=== PATIENT | female | born 1985 | race Caucasian/White ===

== ENCOUNTER 2023-05-06 11:41 | Emergency (ER) | payer OTHER, SELFPAY ==
[2023-05-06 11:51] VITALS: BP 115/64; PULSE 70; RESP 18; TEMP 36.8; O2SAT 100; BMI 16.0
--- NOTE | 2023-05-06 12:24 | ED.SKABFB1 ---
HPI - Skin/Abscess/Foreign Bdy General Chief complaint: Skin/Abscess/Foreign Body Stated complaint: ABDOMINAL PAIN Time Seen by Provider: 05/06/23 12:20 Source: patient Limitations: no limitations History of Present Illness HPI narrative: patient here the sore tender swollen area over her left abdomen. She denies any history of previous abscesses infections or MRSA. She is not diabetic. She's not had fever shakes or chills. She doesn't feel ill. She's tried to get it to drain and but has not. The area of involvement is over the left lateral abdomen and she has no other skin lesions at all Related Data Allergies Allergy/AdvReac Type Severity Reaction Status Date / Time No Known Drug Allergies Allergy Verified 05/06/23 11:50 PFSH PFSH Social History Smoking status: Current every day smoker Exam Narrative Exam Narrative: awake alert pleasant does not appear ill her vital signs are stable. Problem focused examination the rest the entire skin integument is without any abnormalities. However on examination left lower and mid abdomen there is a freely movable tender three and half by two and half centimeter palpable was felt to be an abscess with it coming to ahead with erythema and appointing area. She is not having itching to the area. There is no surrounding cellulitis or lymphangitis. Constitutional Vital Signs, click to edit/add: Last Vital Signs Temp 98.2 F 05/06/23 11:51 Pulse 70 05/06/23 11:51 Resp 18 05/06/23 11:51 BP 115/64 05/06/23 11:51 Pulse Ox 100 05/06/23 11:51 O2 Del Method Room Air 05/06/23 11:51 Course Vital Signs Vital signs: Vital Signs Temperature 98.2 F 05/06/23 11:51 Pulse Rate 70 05/06/23 11:51 Respiratory Rate 18 05/06/23 11:51 Blood Pressure 115/64 05/06/23 11:51 Pulse Oximetry 100 05/06/23 11:51 Oxygen Delivery Method Room Air 05/06/23 11:51 Temperature 98.2 F 05/06/23 11:51 Pulse Rate 70 05/06/23 11:51 Respiratory Rate 18 05/06/23 11:51 Blood Pressure 115/64 05/06/23 11:51 Pulse Oximetry 100 05/06/23 11:51 Oxygen Delivery Method Room Air 05/06/23 11:51 MDM - Skin/Abscess/Foreign Bdy MDM Narrative Medical decision making narrative: procedure note after lidocaine with epinephrine wound was prepped with Betadine and then a #11 blade was used to make a stellate laceration approximately 1 cm in diameter. A good amount. Temperature was recovered and then hemostats were used to break up subcutaneous cystic type debris deeper inside. This was felt to be more of an infected cystic structure that was an abscess. She tolerated the procedure well. Packing is replaced. I did not culture the area. We will lyse warm compresses. She can remove the packing in twenty-four hours she'll be placed on Keflex and doxycycline. Discharge Plan Discharge Chief Complaint: Skin/Abscess/Foreign Body Clinical Impression: Infected cyst of skin Patient Disposition: Home, Self-Care Time of Disposition Decision: 12:51 Additional Instructions: Keflex/doxycycline Stand Alone Forms: Portal Instructions Referrals: Physician,Non-Staff, MD [Primary Care Provider] - 1 week
[2023-05-06] MEDS: LIDOCAINE HCL 1%-EPINEPHRINE 1:100,000 20 ML MDV INJ (12:39)
== END 2023-05-06 13:06 | disposition home or self-care (01) ==
PROVIDERS: Emergency Provider Emergency Medicine Emergency Medical Services
DX: L72.9 Follicular cyst of the skin and subcutaneous tissue, unspecified (principal); F17.210 Nicotine dependence, cigarettes, uncomplicated
CPT/HCPCS: 10060; 99283

== ENCOUNTER 2023-05-15 11:35 | Emergency (ER) | payer OTHER, SELFPAY ==
[2023-05-15 11:42] VITALS: BP 106/71; PULSE 86; RESP 16; TEMP 36.6; O2SAT 98; BMI 21.0
--- OUTSIDE RECORDS SUMMARY | 2023-05-15 11:42 | XMS_ITS | CCD ---
Author Name Unknown Address [address] [place] [address] Organization [facility] Care Team Providers Care Substitute Crossing Guard Name Role Phone MD Francisco J Walker Admit Provider [phone] MD Francisco J Walker Attending Provider [phone] NO FAMILY, PHYSICIAN Primary Care Provider Chayova AUSTIN Alexandre Attending Unavailable AUSTIN BROWN Consulting Unavailable AUSTIN BROWN Admitting Unavailable REQUEST, NONE LISTED Primary Care Unavaila ANEUDY Key Attending Unavailable ANEUDY HO Consulting Unavailable ANEUDY HO Admitting Unavailable JR CRAFT Attending Unavailable JR CRAFT Admitting Unavailable REQUEST, NONE LISTED Primary Care Unavaila ble Medications Current Medications Medication Drug Class(es) Dates Sig (Normalized) Sig (Original) ARIPiprazole 5 mg oral tablet (1 source) Atypical Antipsychotic Start: 12-15-2021 take 5 mg by mouth once daily at bedtime Aripiprazole Active 5 MG PO Daily at bedtime 30 December 15, 2021 12:00am hydrOXYzine pamoate 50 mg oral capsule (1 source) Antihistamine Start: 12-15-2021 take 50 mg by mouth every six hours Hydroxyzine Pamoate Active 50 MG PO Q6H 30 December 15, 2021 12:00am nicotine 2 mg chewing gum (1 source) Cholinergic Nicotinic Agonist Start: 12-15-2021 Nicotine (Polacrilex) Active 2 MG BUCCAL Q2H 60 December 15, 2021 12:00am sertraline 50 mg oral tablet (1 source) Serotonin Reuptake Inhibitor Start: 12-15-2021 take 50 mg by mouth once daily in the morning Sertraline Active 50 MG PO Every morning 30 December 15, 2021 12:00am traZODone hydrochloride 50 mg oral tablet (1 source) Serotonin Reuptake Inhibitor Start: 12-15-2021 take 50 mg by mouth once daily at bedtime Trazodone Active 50 MG PO Daily at bedtime December 15, 2021 12:00am Problems Active Problems Problem Classification Problem Date Documented Date Episodic/Chronic Anxiety disorders (4 sources) Posttraumatic stress disorder; Translations: [Post-traumatic stress disorder, unspecified] 12-13-2021 Chronic Mood disorders (2 sources) Major depressive disorder; Translations: [Major depressive disorder, single episode, unspecified] 12-13-2021 Chronic Schizophrenia and other psychotic disorders (2 sources) Psychotic disorder; Translations: [Unspecified psychosis not due to a substance or known physiological condition] 12-13-2021 Chronic Substance-related disorders (1 source) Nicotine dependence, cigarettes, uncomplicated; Translations: [NICOTINE DEPEND CIGARETTES UNCOMP] Onset: 12-14-2021 Chronic Substance-related disorders (2 sources) Substance abuse; Translations: [Other psychoactive substance use, unspecified, uncomplicated] 12-13-2021 Episodic Unclassified (1 source) CONTACT W/AND (SUSP) EXPOS COVID-19; Translations: [CONTACT W/AND (SUSP) EXPOS COVID-19] Onset: 12-14-2021 Past or Other Problems Problem Classification Problem Date Documented Da te Episodic/Chronic Genitourinary symptoms and ill-defined conditions (3 sources) Frequency of micturition; Translations: [FREQUENCY OF MICTURITION] Onset: 07-24-2021 Episodic Other infections; including parasitic (1 source) Trichomoniasis, unspecified; Translations: [TRICHOMONIASIS UNSPECIFIED] Onset: 07-25-2021 Episodic Suicide and intentional self-inflicted injury (6 sources) Suicidal thoughts; Translations: [Suicidal ideations] Onset: 12-12-2021 12-13-2021 Episodic Results Test Name Value Interpretation Reference Range Facility Cholesterol [Mass/volume] in Serum or PlasmaOrdered By: Francisco J Walker on 12-13-2021 Cholesterol [Mass/Vol] 188 mg/dL 140-200 [facility] Comment on above: Chol less than 200 m g/dl low risk Chol 201-239 mg/dl borderline risk Chol 240 mg/dl and greater high risk Cholesterol in LDL Calc [Mas s/Vol]Ordered By: Francisco J Walker on 12-13-2021 Cholesterol in LDL [Mass/Vol] 124 mg/dL 0-100 [facility] Comment on above: LDL ATP III CLASSIFI CATION LDL less than 100 mg/dL Optimal LDL 100-129 mg/dL Near or above optimal LDL 130-159 mg/dL Borderline high LDL 160-189 mg/dL High LDL greater than 189 mg/dL Very high Cholesterol in VLDL Calc [Ma ss/Vol]Ordered By: Francisco J Walker on 12-13-2021 Cholesterol in VLDL [Mass/Vol] 9 mg/dL [facility] Lipid Panelon 12-13-2021 Cholesterol [Mass/Vol] 188 mg/dL Normal 140-200 [facility] Comment on above: Result Comment: Chol less than 200 mg/dl low risk Chol 201-239 mg/dl borderline risk Chol 240 mg/dl and greater high risk Performed By: #### L IPID, TSH3 wRFLX, [id number] #### [facility] [address] [id number] [facility] Cholesterol in HDL [Mass/Vol] 55 mg/dL Normal 35-85 [facility] Comment on above: Result Comment: HDL CHOL ATP-III CLASSIFICATION Cardiovascular Risk HDL > or equal to 60 mg/dL LOW HDL < 40 mg/dL HIGH Performed By: #### L IPID, TSH3 wRFLX, [id number] #### [facility] [address] [id number] [place] Cholesterol.total/Tri sterol in HDL [Mass ratio] 3.4 {ratio} Normal <5.0 [facility] Comment on above: Performed By: #### L IPID, TSH3 wRFLX, [id number] #### [facility] [address] [place] [address] [place] LDL Cholesterol,Calculated 124 mg/dL High 0-100 [facility] Comment on above: Result Comment: LDL ATP III CLASSIFICATION LDL less than 100 mg/dL Optimal LDL 100-129 mg/dL Near or above optimal LDL 130-159 mg/dL Borderline high LDL 160-189 mg/dL High LDL greater than 189 mg/dL Very high Performed By: #### L IPID, TSH3 wRFLX, [id number] #### [facility] [address] [place] [address] [place] Triglyceride w/Reflex 45 mg/dL Normal 35-149 [facility] Comment on above: Result Comment: TRIG ATP III CLASSIFICATION TRIG less than 150 mg/dL Normal TRIG 150-199 mg/dL Borderline high TRIG 200-500 mg/dL High TRIG greater than 500 mg/dL Very high Standard traceable to the Center for Disease Conrtrol and Prevention (CDC) test method. Performed By: #### L IPID, TSH3 wRFLX, [id number] #### [facility] [address] VLDL CHOLESTEROL 9 mg/dL Normal [facility] Comment on above: Performed By: #### L IPID, TSH3 wRFLX, [id number] #### [facility] [address] No Panel InformationOrdered By: Francisco J Walker on 12-13-2021 25-Hydroxy Vitamin D Total 36.1 ng/mL 30-100 [facility] Comment on above: VITAMIN D STATUS 25( [place])VITAMIN D RANGE (ng/mL) Deficient <20 Insufficient 20 to <30 Sufficient 30 to 100 Reference: Sai MF,Catie NC, Mic TIJERINA, et al. Evaluation,treatment, and prevention of vitamin D deficiency; an Endocrine Society clinical practice guideline. JCEM. 2010; 96(7):1911-30. Serum or plasma high density lipoprotein (HDL) cholesterol measurementOrdered By: Francisco J Walker on 12-13-2021 Cholesterol in HDL [Mass/Vol] 55 mg/dL 35-85 [facility] Comment on above: HDL CHOL ATP-III CLA SSIFICATION Cardiovascular Risk HDL > or equal to 60 mg/dL LOW HDL < 40 mg/dL HIGH Serum or plasma total choles terol/high density lipoprotein (HDL) cholesterol mass ratOrdered By: Francisco J Walker on 12-13-2021 Cholesterol.total/Tri sterol in HDL [Mass ratio] 3.4 {ratio} <5.0 [facility] TSH DL <= 0.005 mIU/L QnOrde red By: Francisco J Walker on 12-13-2021 TSH Qn 0.73 m[IU]/L 0.45-5.33 [facility] Thyroid Stim Hormone w/Rflxo n 12-13-2021 Thyroid Stim Hormone w/Rflx 0.73 u[iU]/mL Normal 0.45-5.33 [facility] Comment on above: Performed By: #### L IPID, TSH3 wRFLX, [id number] #### [facility] [address] [id number] [facility] Triglyceride [Mass/volume] i n Serum or PlasmaOrdered By: Francisco J Walker on 12-13-2021 Triglyceride [Mass/Vol] 45 mg/dL 35-149 [facility] Comment on above: TRIG ATP III CLASSIF ICATION TRIG less than 150 mg/dL Normal TRIG 150-199 mg/dL Borderline high TRIG 200-500 mg/dL High TRIG greater than 500 mg/dL Very high Standard traceable to the Center for Disease Conrtrol and Prevention (CDC) test method. Vitamin D 25 Hydroxy Totalon 12-13-2021 Vitamin D 25 Hydroxy Total 36.1 ng/mL Normal 30-100 [facility] Comment on above: Result Comment: EVER MIN D STATUS 25([place])VITAMIN D RANGE (ng/mL) Deficient <20 Insufficient 20 to <30 Sufficient 30 to 100 Reference: Sai MF,Catie NC, Mic TIJERINA, et al. Evaluation,treatment, and prevention of vitamin D deficiency; an Endocrine Society clinical practice guideline. JCEM. 2010; 96(7):1911-30. PERFORMED BY: [facility] [address] [place] [address] PATHOLOGIST COMMERCIAL ATTORNEY AYANA CARDOZA M.D. Performed By: #### L IPID, TSH3 wRFLX, [id number] #### [facility] [address] [place] [address] [facility] ACETAMINOPHENon 12-12-2021 Acetaminophen [Mass/Vol] ug/mL Normal 10.0-30.0 [facility] Comment on above: Performed By: #### E RUR, DRUGRPD, PREGU #### [facility] [address] [address] [address] Arias Delatorre CBC AUTO DIFFon 08-09-2022 BASO # 0.0 103/ul Normal 0.0-0.1 [facility] Comment on above: Performed By: #### C BC #### [facility] [address] [place] [address] Dr. Arias Delatorre Basophils/100 WBC (Bld) 0.2 % Normal 0.2-2.0 [facility] Comment on above: Performed By: #### C BC #### [facility] [address] [place] [address] Dr. Arias Delatorre EO # 0.0 103/ul Normal 0.0-0.7 [facility] Comment on above: Performed By: #### C BC #### [facility] [address] [place] [address] Dr. Arias Delatorre Eosinophils/100 WBC (Bld) 0.2 % Critically low 0.9-7.0 [facility] Comment on above: Performed By: #### C BC #### [facility] [address] [place] [address] Dr. Arias Delatorre Erythrocyte distribution width (RBC) [Ratio] 12.7 % Normal 11.0-15.0 [facility] Comment on above: Performed By: #### C BC #### [facility] [address] [place] [address] Dr. Arias Delatorre Hematocrit (Bld) [Volume fraction] 42.9 % Normal 36.0-48.0 [facility] Comment on above: Performed By: #### C BC #### [facility] [address] [place] [address] Dr. Arias Delatorre Hemoglobin (Bld) [Mass/Vol] 14.6 g/dL Normal 12.0-16.0 [facility] Comment on above: Performed By: #### C BC #### [facility] [address] [place] [address] Dr. Arias Delatorre IG # 0.03 10e3/ul Normal 0.00-0.03 [facility] Comment on above: Performed By: #### C BC #### [facility] [address] [place] [address] Dr. Arias Delatorre IG % 0.3 % Normal 0.0-0.5 [facility] Comment on above: Performed By: #### C BC #### [facility] [address] [place] [address] Dr. Arias Delatorre LYMPH # 2.8 103/ul Normal 1.2-3.8 [facility] Comment on above: Performed By: #### C BC #### [facility] [address] [place] [address] Dr. Arias Delatorre Lymphocytes/100 WBC (Bld) 30.6 % Normal 20.5-60.0 [facility] Comment on above: Performed By: #### C BC #### [facility] [address] [place] [address] Dr. Arias Delatorre MANUAL DIFF REQ NO Normal [facility] Comment on above: Performed By: #### C BC #### [facility] [address] [place] [address] Dr. Arias Delatorre MCH (RBC) [Entitic mass] 32.7 pg Normal 26.7-34.0 [facility] Comment on above: Performed By: #### C BC #### [facility] [address] [place] [address] Dr. Arias Delatorre MCHC (RBC) [Mass/Vol] 34.0 g/dL Normal 29.9-35.2 [facility] Comment on above: Performed By: #### C BC #### [facility] [address] [place] [address] Dr. Arias Delatorre MCV (RBC) [Entitic vol] 96.0 fL Normal 81.0-99.0 [facility] Comment on above: Performed By: #### C BC #### [facility] [address] [place] [address] Dr. Arias Delatorre MONO # 0.3 103/ul Normal 0.3-0.8 [facility] Comment on above: Performed By: #### C BC #### [facility] [address] [place] [address] Dr. Arias Delatorre Monocytes/100 WBC (Bld) 3.3 % Normal 1.7-12.0 [facility] Comment on above: Performed By: #### C BC #### [facility] [address] [place] [address] Dr. Arias Delatorre NEUT # 6.0 103/ul Normal 1.4-6.5 [facility] Comment on above: Performed By: #### C BC #### [facility] [address] [place] [address] Dr. Arias Delatorre Neutrophils/100 WBC (Bld) 65.4 % Normal 43.0-75.0 [facility] Comment on above: Performed By: #### C BC #### [facility] [address] [place] [address] Dr. Arias Delatorre Platelet mean volume (Bld) [Entitic vol] 8.9 fL Critically low 9.5-13.5 [facility] Comment on above: Performed By: #### C BC #### [facility] [address] [place] [address] Dr. Arias Delatorre PLT 201 103/ul Normal 150-450 [facility] Comment on above: Performed By: #### C BC #### [facility] [address] [place] [address] Dr. Arias Delatorre RBC 4.47 106/ul Normal 4.20-5.40 [facility] Comment on above: Performed By: #### C BC #### [facility] [address] [place] [address] Dr. Arias Delatorre WBC 9.1 103/ul Normal 4.0-11.0 [facility] Comment on above: Performed By: #### C BC #### [facility] [address] [place] [address] Dr. Arias Delatorre [facility]on SARS-CoV-2 (COVID-19) RNA DESI+probe Ql (Unsp spec) Not detected Normal NOT DETECTED [facility] Comment on above: Result Comment: When diagnostic testing is negative, the possibility of a false negative should be considered in the context of a patient's recent exposures and the presence of clinical signs and symptoms consistent with SARS-CoV-2. This test is not yet approved or cleared by the [place] FDA. When there are no FDA-approved or cleared tests available, and other criteria are met, FDA can make tests available under an emergency access mechanism called an Emergency Use Authorization (EUA). The EUA for this test is supported by the [place] of Health and Human Service's declaration that circumstances exist to justify the emergency use of in vitro diagnostics for the detection and/or diagnosis of the virus that causes COVID-19. This EUA will remain in effect for the duration of the COVID-19 declaration justifying emergency of IVDs, unless it is terminated or revoked by the FDA (after which the test may no longer be used). Performed By: #### C VDTBH #### [facility] [address] [place] [address] Dr. Arias Delatorre DRUG SCREEN RAPID (URINE)on 12-12-2021 AMP Negative Normal NEGATIVE [facility] Comment on above: Performed By: #### E RUR, DRUGRPD, PREGU #### [facility] [address] [place] [address] Dr. Arias Delatorre BAR Negative Normal NEGATIVE [facility] Comment on above: Performed By: #### E RUR, DRUGRPD, PREGU #### [facility] [address] [place] [address] Dr. Arias Delatorre BUP Negative Normal NEGATIVE [facility] Comment on above: Performed By: #### E RUR, DRUGRPD, PREGU #### [facility] [address] [place] [address] Dr. Arias Delatorre BZO Negative Normal NEGATIVE [facility] Comment on above: Performed By: #### E RUR, DRUGRPD, PREGU #### [facility] [address] [place] [address] Dr. Arias Delatorre VERÓNICA Negative Normal NEGATIVE [facility] Comment on above: Performed By: #### E RUR, DRUGRPD, PREGU #### [facility] [address] [place] [address] Dr. Arias Delatorre CUT-OFFS SEE BELOW Normal [facility] Comment on above: Result Comment: AMP (Amphetamine): 500ng/mL, BAR (Barbituates): 200 ng/mL, BZO (Benzodiazepines): 150 ng/mL, BUP (Buprenorphine): 10 ng/mL, VERÓNICA (Cocaine): 150 ng/mL, mAMP (Methamphetamine): 500 ng/mL, MTD (Methadone): 200 ng/mL, OPI (Opiates): 100 ng/mL, OXY (Oxycodone): 100 ng/mL, PCP (Phencyclidine): 25 ng/mL, PPX (Propoxyphene): 300 ng/mL, THC (Cannabinoids): 50 ng/mL, TCA (Trycyclic Antidepressants): 300 ng/mL Performed By: #### E RUR, DRUGRPD, PREGU #### [facility] [address] [place] [address] Dr. Arias Delatorre DRUG CUT HEADER DRUG CLASS TEST SYSTEM CUT-OFF CONCENTRATIONS ARE FOLLOWS: Normal [facility] Comment on above: Performed By: #### E RUR, DRUGRPD, PREGU #### [facility] [address] [place] [address] Dr. Arias Delatorre mAMP Negative Normal NEGATIVE [facility] Comment on above: Performed By: #### E RUR, DRUGRPD, PREGU #### [facility] [address] [place] [address] Dr. Arias Delatorre MTD Negative Normal NEGATIVE [facility] Comment on above: Performed By: #### E RUR, DRUGRPD, PREGU #### [facility] [address] [place] [address] Dr. Arias Delatorre OPI Negative Normal NEGATIVE [facility] Comment on above: Performed By: #### E RUR, DRUGRPD, PREGU #### [facility] [address] [place] [address] Dr. Arias Delatorre OXY Negative Normal NEGATIVE [facility] Comment on above: Performed By: #### E RUR, DRUGRPD, PREGU #### [facility] [address] [place] [address] Dr. Arias Delatorre PCP Negative Normal NEGATIVE [facility] Comment on above: Performed By: #### E RUR, DRUGRPD, PREGU #### [facility] [address] [place] [address] Dr. Arias Delatorre PPX Negative Normal NEGATIVE [facility] Comment on above: Performed By: #### E RUR, DRUGRPD, PREGU #### [facility] [address] [place] [address] Dr. Arias Delatorre TCA Negative Normal NEGATIVE [facility] Comment on above: Performed By: #### E RUR, DRUGRPD, PREGU #### [facility] [address] [place] [address] Dr. Arias Delatorre THC Positive Abnormal NEGATIVE [facility] Comment on above: Performed By: #### E RUR, DRUGRPD, PREGU #### [facility] [address] [place] [address] Dr. Arias Delatorre ER URINE PROFILEon 2 Bilirubin Ql (U) MODERATE Abnormal NEGATIVE [facility] Comment on above: Performed By: #### E RUR, DRUGRPD, PREGU #### [facility] [address] [place] [address] Dr. Arias Delatorre Clarity (U) SL CLOUDY Abnormal CLEAR [facility] Comment on above: Performed By: #### E RUR, DRUGRPD, PREGU #### [facility] [address] [place] [address] Dr. Arias Delatorre Color (U) YELLOW Normal YELLOW [facility] Comment on above: Performed By: #### E RUR, DRUGRPD, PREGU #### [facility] [address] [place] [address] Dr. Arias Delatorre ERUAHD A micrscopic examination will be performed if indicated. Normal [facility] Comment on above: Performed By: #### E RUR, DRUGRPD, PREGU #### [facility] [address] [place] [address] Dr. Arias Delatorre Glucose Ql (U) Negative Normal NEGATIVE [facility] Comment on above: Performed By: #### E RUR, DRUGRPD, PREGU #### [facility] [address] [place] [address] Dr. Arias Delatorre Hemoglobin Ql (U) Negative Normal NEGATIVE [facility] Comment on above: Performed By: #### E RUR, DRUGRPD, PREGU #### [facility] [address] [place] [address] Dr. Arias Delatorre Ketones Ql (U) 15 mg/dl Abnormal NEGATIVE [facility] Comment on above: Performed By: #### E RUR, DRUGRPD, PREGU #### [facility] [address] [place] [address] Dr. Arias Delatorre LEUKOCYTES Negative Normal NEGATIVE [facility] Comment on above: Performed By: #### E RUR, DRUGRPD, PREGU #### [facility] [address] [place] [address] Dr. Arias Delatorre Nitrite Ql (U) Negative Normal NEGATIVE [facility] Comment on above: Performed By: #### E RUR, DRUGRPD, PREGU #### [facility] [address] [place] [address] Dr. Arias Delatorre pH (U) 5.5 [pH] Normal 5-9 [facility] Comment on above: Performed By: #### E RUR, DRUGRPD, PREGU #### [facility] [address] [place] [address] Dr. Arias Delatorre SPEC GRAVITY 1.030 Abnormal 1.005-<=1.025 [facility] Comment on above: Performed By: #### E RUR, DRUGRPD, PREGU #### [facility] [address] [place] [address] Dr. Arias Delatorre UA PROTEIN TRACE Normal NEGATIVE/ TRACE [facility] Comment on above: Performed By: #### E RUR, DRUGRPD, PREGU #### [facility] [address] [place] [address] Dr. Arias Delatorre UR MICRO IND NOT INDICATED Normal [facility] Comment on above: Performed By: #### E RUR, DRUGRPD, PREGU #### [facility] [address] [place] [address] Dr. Arias Delatorre Urobilinogen Qn (U) 0.2 {Alexandra'U}/dL Normal 0.2 - 1. 0 [facility] Comment on above: Performed By: #### E RUR, DRUGRPD, PREGU #### [facility] [address] [place] [address] Dr. Arias Delatorre ETHANOL (BLD ALC)on 12-13-19 22 ALC NOTE NOTE: 80 mg/dl is the legal limit for a blood alcohol level Normal [facility] Comment on above: Performed By: #### E RUR, DRUGRPD, PREGU #### [facility] [address] [place] [address] Dr. Arias Delatorre Ethanol [Mass/Vol] mg/dL Normal [facility] Comment on above: Performed By: #### E RUR, DRUGRPD, PREGU #### [facility] [address] [place] [address] Dr. Arias Delatorre URon 12-12-2021 , QUAL Negative Normal NEGATIVE [facility] Comment on above: Performed By: #### E RUR, DRUGRPD, PREGU #### [facility] [address] [place] [address] Dr. Arias Delatorre PROF 14(COMP METB)on 022 Albumin [Mass/Vol] 5.0 g/dL Normal 3.4-5.0 [facility] Comment on above: Performed By: #### E RUR DRUGRPD, PREGU #### [facility] [address] [place] [address] Dr. Arias Delatorre Albumin/Globulin [Mass ratio] 1.5 {ratio} Normal [facility] Comment on above: Performed By: #### E RUR, DRUGRPD, PREGU #### [facility] [address] [place] [address] Dr. Arias Delatorre ALP [Catalytic activity/Vol] 63 U/L Normal 46-116 [facility] Comment on above: Performed By: #### E RUR, DRUGRPD, PREGU #### [facility] [address] [place] [address] Dr. Arias Delatorre ALT [Catalytic activity/Vol] 16 U/L Normal 14-59 [facility] Comment on above: Performed By: #### E RUR, DRUGRPD, PREGU #### [facility] [address] [place] [address] Dr. Arias Delatorre Anion gap [Moles/Vol] 14.6 mmol/L Normal Th [facility] Comment on above: Performed By: #### E RUR, DRUGRPD, PREGU #### [facility] [address] [place] [address] Dr. Arias Delatorre AST [Catalytic activity/Vol] 13 U/L Critically low 15-37 [facility] Comment on above: Performed By: #### E RUR, DRUGRPD, PREGU #### [facility] [address] [place] [address] Dr. Arias Delatorre Bilirubin [Mass/Vol] 0.8 mg/dL Normal 0.2-1.0 [facility] Comment on above: Performed By: #### E RUR, DRUGRPD, PREGU #### [facility] [address] [place] [address] Dr. Arias Delatorre Calcium [Mass/Vol] 9.8 mg/dL Normal 8.5-10.1 [facility] Comment on above: Performed By: #### E RUR, DRUGRPD, PREGU #### [facility] [address] [place] [address] Dr. Arias Delatorre Chloride [Moles/Vol] 103 mmol/L Normal 98-107 [facility] Comment on above: Performed By: #### E RUR, DRUGRPD, PREGU #### [facility] [address] [place] [address] Dr. Arias Delatorre CO2 [Moles/Vol] 27.9 mmol/L Normal 21.0-32.0 [facility] Comment on above: Performed By: #### E RUR, DRUGRPD, PREGU #### [facility] [address] [place] [address] Dr. Arias Delatorre Creatinine [Mass/Vol] 1.04 mg/dL Critically high 0.55-1.02 [facility] Comment on above: Performed By: #### E RUR, DRUGRPD, PREGU #### [facility] [address] [place] [address] Dr. Arias Delatorre EGFR-AF BENINESE >60 Normal >=60 [facility] Comment on above: Performed By: #### E RUR, DRUGRPD, PREGU #### [facility] [address] [place] [address] Dr. Arias Delatorre EGFR-NON AF BENINESE 60 mL/min/1.73m2 Normal >=60 [facility] Comment on above: Performed By: #### E RUR, DRUGRPD, PREGU #### [facility] [address] [place] [address] Dr. Arias Delatorre Globulin (S) [Mass/Vol] 3.3 g/dL Normal [facility] Comment on above: Performed By: #### E RUR, DRUGRPD, PREGU #### [facility] [address] [place] [address] Dr. Arias Delatorre Glucose [Mass/Vol] 123 mg/dL Critically high 74-106 [facility] Comment on above: Performed By: #### E RUR, DRUGRPD, PREGU #### [facility] [address] [place] [address] Dr. Arias Delatorre Potassium [Moles/Vol] 3.5 mmol/L Normal 3.5-5.1 [facility] Comment on above: Performed By: #### E RUR, DRUGRPD, PREGU #### [facility] [address] [place] [address] Dr. Arias Delatorre Protein [Mass/Vol] 8.3 g/dL Critically high 6.4-8.2 [facility] Comment on above: Performed By: #### E RUR, DRUGRPD, PREGU #### [facility] [address] [place] [address] Dr. Arias Delatorre Sodium [Moles/Vol] 142 mmol/L Normal 136-145 [facility] Comment on above: Performed By: #### E RUR, DRUGRPD, PREGU #### [facility] [address] [place] [address] Dr. Arias Delatorre Urea nitrogen [Mass/Vol] 9.0 mg/dL Normal 7.0-18.0 [facility] Comment on above: Performed By: #### E RUR, DRUGRPD, PREGU #### [facility] [address] [place] [address] Dr. Arias Delatorre Urea nitrogen/Creatinine [Mass ratio] 8.7 mg/mg Normal [facility] Comment on above: Performed By: #### E RUR, DRUGRPD, PREGU #### [facility] [address] [place] [address] Dr. Arias Delatorre SALICYLATEon 12-12-2021 SALICYLATE 4.7 mg/dL Normal <=19.9 [facility] Comment on above: Performed By: #### A CET, CMP, SALYC #### [facility] [address] [place] [address] Dr. Arias Delatorre CULTURE URINEon 07-24-2021 CULTURE URINE Culture Observations: LIGHT GROWTH OF MIXED GENITAL CONOR. NO POTENTIAL PATHOGENS SEEN. Normal The [facility] Comment on above: Performed By: #### U RCX #### [facility] [address] [place] [address] Dr. Arias Delatorre ER URINE PROFILEon 2 Bilirubin Ql (U) Negative Normal NEGATIVE [facility] Comment on above: Performed By: #### U MICRO, ERUR, PREGU #### [facility] [address] [place] [address] Dr. Arias Delatorre Clarity (U) CLEAR Normal CLEAR The [facility] Comment on above: Performed By: #### U MICRO, ERUR, PREGU #### [facility] [address] [place] [address] Dr. Arias Delatorre Color (U) LT. YELLOW Normal YELLOW The [facility] Comment on above: Performed By: #### U MICRO, ERUR, PREGU #### [facility] [address] [place] [address] Dr. Arias Delatorre ERUAHD A micrscopic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 of self (15-minute face check). Recommend attending groups and psychoeducation for building coping skills. No abnormal movements noted on exam. AIMS is Zero. Code(s): F32.9 - Major depressive disorder, single episode, unspecified Status: Acute (2) Anxiety: Code(s): F41.9 - Anxiety disorder, unspecified Status: Acute (3) Post traumatic stress disorder (PTSD): Code(s): F43.10 - Post-traumatic stress disorder, unspecified Status: Acute (4) Substance use disorder: Code(s): F19.90 - Other psychoactive substance use, unspecified, uncomplicated Status: Acute (5) Psychosis: Code(s): F29 - Unspecified psychosis not due to a substance or known physiological condition Status: Acute (6) Suicidal ideation: Code(s): R45.851 - Suicidal ideations Status: Acute Documented By: Francisco J Walker MD 12/13/21 0950 Signed By: <Electronically signed by Francisco J Walker MD> 12/13/21 4640 [facility] Work Phone: Evaluation note Note Date & Type Note Facility Evaluation note Diagnosis Onset Date Anxiety acute Major depressive disorder [place] Post traumatic stress disorder (PTSD) acute Psychosis acute Substance use disorder acute Suicidal ideation acute [facility] Work Phone: Hospital Discharge instructions Note Date & Type Note Facility Hospital Discharge instructions Additional Instructions Regular diet. No activity restrictions. [facility] Work Phone: Summary Purpose Family History No Family History Records Found Relationship Condition Age at Onset Recorded Date/T rowena brother Malignant neoplasm Unknown Not Specified Malignant neoplasm Unknown father Hepatic cirrhosis Unknown Alcoholism Unknown grandparent Family history of mental disorder Unknown Advance Directives No Advanced Directives Records Found Advance Directive Response Recorded Date/ Time Advance Directives No December 12, 2 022 5:52pm Chief Complaint and Reason for Visit Chief Complaint MDD Reason for Visit Anxiety Major depressive disorder Post traumatic stress disorder (PTSD) Psychosis Substance use disorder Suicidal ideation Additional Source Comments INFORMATION SOURCE (unrecogn ized section and content) DATE CREATED AUTHOR 12/27/2021 [facility] DATE CREATED AUTHOR AUTHOR'S ORGANIZ ATION 06/20/2022 [facility] Teams (unrecognized sec tion and content) Team Status: Inactive Member Role Status Dates Francisco J Walker MD Admit Provider, Attending Provider Active PHYSICIAN NO FAMILY Primary Care Provider Active Team Status: Active Member Role Status Dates PHYSICIAN NO FAMILY Primary Care Provider Active Goals (unrecognized section and content) Goals may be documented in a n alternate section FOR RECORDS PERTAINING TO PATIENTS WHO ARE OR HAVE BEEN ENROLLED IN A CHEMICAL DEPENDENCY/SUBSTANCEABUSE PROGRAM, SOME INFORMATION MAY BE OMITTED. This clinical summary was aggregated from multiple sources. Caution should be exercised in using it in the provision of clinical care. This summary normalizes information from multiple sources, and as a consequence, information in this document may materially change the coding, format and clinical context of patient data. In addition, data may be omitted in some cases. CLINICAL DECISIONS SHOULD BE BASED ON THE PRIMARY CLINICAL RECORDS. [employer] provides no warranty or guarantee of the accuracy or completeness of information in this document.
--- NOTE | 2023-05-15 13:11 | ED.SKABFB1 ---
HPI - Skin/Abscess/Foreign Bdy General Chief complaint: Skin/Abscess/Foreign Body Stated complaint: LUMPS/ BUMPS Time Seen by Provider: 05/15/23 12:57 Source: patient Mode of arrival: walk-in Limitations: no limitations History of Present Illness HPI narrative: this patient's here for very small tender area in her right lower abdomen. She was here several weeks ago and we had a more extensive abscess. We did an I and D procedure on there and placed her on antibiotics. That area is completely improved and gotten better with no symptoms or complications. Today this area is more medial and distal is approximately 15 cm away from where her earlier abscess was. She's never been checked for diabetes. One thing we did discloses that she uses straight razor for personal hygiene and that may be contributing to recurrence of MRSA type looking infections. In either case we will check her sugar. On please see the examination Related Data Allergies Allergy/AdvReac Type Severity Reaction Status Date / Time No Known Drug Allergies Allergy Verified 05/15/23 11:42 PFSH PFSH Social History Smoking status: Current every day smoker Exam Narrative Exam Narrative: well-hydrated well-nourished afebrile looks very healthy. The previous I and D area above the current problematic area is completely healed with no residual masses tenderness redness or tenderness. This is a very small area approximately less than 1 cm in diameter is not fluctuant or tender it is not pointing. There is no subcutaneous cysts noted. This should be managed with warm compresses and antibiotic therapy. Constitutional Vital Signs, click to edit/add: Last Vital Signs Temp 97.8 F 05/15/23 11:42 Pulse 86 05/15/23 11:42 Resp 16 05/15/23 11:42 BP 106/71 05/15/23 11:42 Pulse Ox 98 05/15/23 11:42 O2 Del Method Room Air 05/15/23 11:42 Course Vital Signs Vital signs: Vital Signs Temperature 97.8 F 05/15/23 11:42 Pulse Rate 86 05/15/23 11:42 Respiratory Rate 16 05/15/23 11:42 Blood Pressure 106/71 05/15/23 11:42 Pulse Oximetry 98 05/15/23 11:42 Oxygen Delivery Method Room Air 05/15/23 11:42 Temperature 97.8 F 05/15/23 11:42 Pulse Rate 86 05/15/23 11:42 Respiratory Rate 16 05/15/23 11:42 Blood Pressure 106/71 05/15/23 11:42 Pulse Oximetry 98 05/15/23 11:42 Oxygen Delivery Method Room Air 05/15/23 11:42 MDM - Skin/Abscess/Foreign Bdy MDM Narrative Medical decision making narrative: early infection of the skin distant from her previous infection. Should respond to conservative measures, does not need I and D today. Discharge Plan Discharge Chief Complaint: Skin/Abscess/Foreign Body Clinical Impression: Abscess of skin or subcutaneous tissue Patient Disposition: Home, Self-Care Time of Disposition Decision: 13:14 Additional Instructions: warm compresses/doxycycline Stand Alone Forms: Portal Instructions Referrals: Physician,Non-Staff, MD [Primary Care Provider] - 1 week
[2023-05-15 13:27] LABS: Glucometer 93 mg/dL (74-106)
== END 2023-05-15 13:36 | disposition home or self-care (01) ==
PROVIDERS: Emergency Provider Emergency Medicine Emergency Medical Services
DX: L02.211 Cutaneous abscess of abdominal wall (principal); F17.210 Nicotine dependence, cigarettes, uncomplicated
CPT/HCPCS: 36415; 99283

== ENCOUNTER 2024-02-23 10:12 | Emergency (ER) | payer OTHER, SELFPAY ==
[2024-02-23 10:16] VITALS: BP 122/65; PULSE 83; TEMP 37.4; O2SAT 97; BMI 60.5
--- OUTSIDE RECORDS SUMMARY | 2024-02-23 10:25 | XMS_ITS | CCD ---
Author Organization [facility] Care Team Providers Care [employer] Sorter Name Role Phone MD Francisco J Walker Admit Provider MD Francisco J Walker Attending Provider [phone] NO FAMILY, PHYSICIAN Primary Care Provider Unava ilable AUSTIN BROWN Attending Unavailable AUSTIN BROWN Consulting Unavailable AUSTIN BROWN Admitting Unavailable REQUEST, NONE LISTED Primary Care Unavaila ble ANEUDY HO Attending Unavailable ANEUDY HO Consulting Unavailable ANEUDY HO Admitting Unavailable SHAMJOSIANE, JR Attending Unavailable JR CRAFT Admitting Unavailable REQUEST, NONE LISTED Primary Care Unavaila ble NO FAMILY, PHYSICIAN Primary Care Provider Unava ilable DO Lucy Hardy Emergency Provider DO Haja Hauser Attending Provider Lucy Hardy Attending Unavailable NO FAMILY, PHYSICIAN Primary Care Unavailable Lucy Hardy Admitting Unavailable Haja Hauser Admitting Unavailable Haja Hauser Attending Unavailable NO FAMILY, PHYSICIAN Primary Care Unavailable Crystal Kauffman Attending Unavailable Crystal Kauffman Attending Unavailable Crystal Kauffman Attending Unavailable Crystal Kauffman Attending Unavailable ASHLEY WILBURN Attending Unavailable Medications Current Medications Medication Drug Class(es) Dates Sig (Normalized) Sig (Original) ARIPiprazole 5 mg oral tablet (3 sources) Atypical Antipsychotic Start: 12-15-2021 take 5 mg by mouth once daily at bedtime Aripiprazole Active 5 MG PO Daily at bedtime December 14, 2021 11:00pm hydrOXYzine pamoate 50 mg oral capsule (3 sources) Antihistamine Start: 12-15-2021 take 50 mg by mouth every six hours Hydroxyzine Pamoate Active 50 MG PO Q6H December 14, 2021 11:00pm nicotine 2 mg chewing gum (3 sources) Cholinergic Nicotinic Agonist Start: 12-15-2021 Nicotine (Polacrilex) Active 2 MG BUCCAL Q2H December 14, 2021 11:00pm ondansetron 4 mg disintegrating oral tablet (2 sources) Serotonin-3 Receptor Antagonist Start: 05-21-2023 take 4 mg by mouth every eight hours Ondansetron Active 4 MG PO Q8H May 21, 2023 12:00am sertraline 50 mg oral tablet (3 sources) Serotonin Reuptake Inhibitor Start: 12-15-2021 take 50 mg by mouth once daily in the morning Sertraline Active 50 MG PO Every morning December 14, 2021 11:00pm traZODone hydrochloride 50 mg oral tablet (3 sources) Serotonin Reuptake Inhibitor Start: 12-15-2021 take 50 mg by mouth once daily at bedtime Trazodone Active 50 MG PO Daily at bedtime December 14, 2021 11:00pm Problems Active Problems Problem Classification Problem Date Documented Date Episodic/Chronic Abdominal pain (1 source) Lower abdominal pain, unspecified; Translations: [Lower abdominal pain, unspecified] Onset: 05-21-2023 Episodic Anxiety disorders (8 sources) Posttraumatic stress disorder; Translations: [Post-traumatic stress disorder, unspecified] 12-13-2021 Chronic Mood disorders (4 sources) Major depressive disorder; Translations: [Major depressive disorder, single episode, unspecified] 12-13-2021 Chronic Nausea and vomiting (4 sources) Nausea and vomiting; Translations: [Nausea with vomiting, unspecified] Onset: 05-21-2023 05-21-2023 Episodic Schizophrenia and other psychotic disorders (4 sources) Psychotic disorder; Translations: [Unspecified psychosis not due to a substance or known physiological condition] 12-13-2021 Chronic Skin and subcutaneous tissue infections (1 source) Cutaneous abscess of abdominal wall; Translations: [Cutaneous abscess of abdominal wall] Onset: 05-21-2023 Episodic Substance-related disorders (1 source) Nicotine dependence, cigarettes, uncomplicated; Translations: [NICOTINE DEPEND CIGARETTES UNCOMP] Onset: 12-14-2021 Chronic Substance-related disorders (4 sources) Substance abuse; Translations: [Other psychoactive substance use, unspecified, uncomplicated] 12-13-2021 Episodic Suicide and intentional self-inflicted injury (8 sources) Suicidal thoughts; Translations: [Suicidal ideations] Onset: 12-12-2021 12-13-2021 Episodic Unclassified (1 source) CONTACT W/AND (SUSP) EXPOS COVID-19; Translations: [CONTACT W/AND (SUSP) EXPOS COVID-19] Onset: 12-14-2021 Past or Other Problems Problem Classification Problem Date Documented Da te Episodic/Chronic Genitourinary symptoms and ill-defined conditions (3 sources) Frequency of micturition; Translations: [FREQUENCY OF MICTURITION] Onset: 07-24-2021 Episodic Other infections; including parasitic (1 source) Trichomoniasis, unspecified; Translations: [TRICHOMONIASIS UNSPECIFIED] Onset: 07-25-2021 Episodic Results Test Name Value Interpretation Reference Range Facility Family Medicine Office/Clini c Noteon 12-25-2023 Family Medicine Office/Clinic Note Family Medicine Office/Clinic Note Chief Complaint Work Release HPI Staff Pt presents today to be evaluated for release to return to work. (Work excuse in chart states pt return to work 12/13/23) LENARD 12/11/23 w/Ashley (due to Crystal being off). Work Excuse given to pt due to folliculitis. Tx'd w/Bactrim therapy. Finished abx yesterday. States she now needs a note to return to work that states she is clear of infection. Pt states she was told by Ashley that she has MRSA. History of Present Illness pt presents today for follow up on abscess on abdomen. Review of Systems PHQ Score Initial Depression Screen Score: 0 SCORE Physical Exam Vitals & Measurements T: 36.6 ?C(Oral) HR: 71(Peripheral) RR: 16 BP: 118/72 SpO2: 96% HT: 63 in HT: 159 cm WT: 68.8 kg WT: 151.36 lb BMI: 27.21 General: alert, no acute distress ENMT: oral mucosa moist, no pharyngeal erythema or exudate Cardiovascular: regular rate and rhythm, normal peripheral perfusion Respiratory: Lungs CTA, respirations non labored Extremities: no deformity, no trauma Neurological: oriented x 4, LOC appropriate for age, CN II-XII intact, motor strength equal & normal bilaterally, speech normal small pea sized area where abscess has healed. no oozing noted. Assessment/Plan 1. Abscess of skin of abdomen (L02.211: Cutaneous abscess of abdominal wall) pt was seen by Ashley while this provider was on vacation. pt was prescribed antibiotics and the area is almost healed. pt is good to return back to work. all questions answered. RTC as needed 2. BMI 27.0-27.9,adult, (Z68.27: Body mass index [BMI] 27.0-27.9, adult)Body mass index [BMI] 27.0-27.9, adult BMI education 3. Current every day vaping (Z72.89: Other problems related to lifestyle) consider not vaping 4. Overweight with body mass index (BMI) of 27 to 27.9 in adult (E66.3: Overweight) see above Follow-up No qualifying data available Problem List/Past Medical History Ongoing Abscess of perineum Abscess of skin of abdomen Anxiety Auditory hallucination Bipolar disorder Current every day vaping Hidradenitis suppurativa Nausea and vomiting Overweight with body mass index (BMI) of 27 to 27.9 in adult PTSD (post-traumatic stress disorder) Historical No qualifying data Procedure/Surgical History delivery, delivery, delivery, Surgery. Medications aripiprazole 5 mg Tab clindamycin 300 mg oral cap, 300 mg= 1 cap(s), Oral, BID hydrOXYzine pamoate 50 mg Cap sertraline 50 mg Tab, 50 mg= 1 tab(s), Oral, Daily, 1 refills traZODONE 50 mg Tab triamcinolone Top 0.1% Crm 15 gram, 1 christine, Topical, TID Zofran 4 mg Tab, 4 mg= 1 tab(s), Oral, q8hr, PRN Allergies No Known Allergies Social History Tobacco - Medium Risk, 12/11/2023 Former smoker, quit more than 30 days ago, quit Beginning of 2023 Tobacco Use:. Never Smokeless Tobacco Use:. Vaping, Household tobacco concerns: No. Yes, 12/25/2023 Immunizations Vaccine Date Status SARS-CoV-2 (COVID-19) mRNA BNT-162b2 vax 10/18/2020 Recorded SARS-CoV-2 (COVID-19) mRNA BNT-162b2 vax 09/27/2020 Recorded [facility] Comment on above: Result Comment: Elec tronically Signed By: Daly ARCHIBALD, Crystal Kumar\.br\Date and Time Signed: 12/25/23 16:13 EDT Provider Letteron 12-25-2023 Provider Letter Provider Letter [address] [place] [id number] December 25, 2023 [address] [place] [id number] : 1985 To Whom It May Concern, Please allow the above named patient to return to work. She is not contagious. If you have any questions regarding this request please do not hesitate to call our office. Thank you. Sincerely, ZAIDA Peters [facility] Ambulatory Visit Summaryon 0 12-11-2023 Ambulatory Visit Summary Ambulatory Visit Summary DEISY PORTILLO :1985 Visit Date:12/11/2023 Ambulatory Visit Instructions Your Care Team Attending Physician - ASHLEY WILBURN CNP Primary Care Physician - Crystal Reese This Is Your Medications List aripiprazole (aripiprazole 5 mg Tab) clindamycin (clindamycin 300 mg oral cap) hydrOXYzine (hydrOXYzine pamoate 50 mg Cap) ondansetron (ondansetron 4 mg Dis Tab) sertraline (sertraline 50 mg Tab) trazodone (traZODONE 50 mg Tab) triamcinolone topical (triamcinolone Top 0.1% Crm 15 gram) Procedures Performed delivery, delivery, delivery, Surgery. Discharge Vitals Temperature (Temporal Artery) 36.7 ?C Heart Rate (Peripheral) 80 Respiratory Rate 18 Blood Pressure 118/82 Height 162.5 cm Height 64 in Weight 68.6 kg Weight 150.92 lb BMI 25.98 Medications What How Much When Why Instructions Unchanged aripiprazole (aripiprazole 5 mg Tab) 30 EA, 0 Refill(s), take 1 tablet by mouth at bedtime Unchanged clindamycin (clindamycin 300 mg oral cap) 1 Capsules By Mouth 2 times a day Unchanged hydrOXYzine (hydrOXYzine pamoate 50 mg Cap) 60 EA, 0 Refill(s), take 1 capsule by mouth twice a day if needed for anxiety Unchanged ondansetron (ondansetron 4 mg Dis Tab) 10 EA, 0 Refill(s), dissolve 1 tablet ON TONGUE every 8 hours if needed for nausea and vomiting Unchanged sertraline (sertraline 50 mg Tab) 1 Tablets By Mouth Every day 30 EA, 0 Refill(s), take 1 tablet by mouth every morning Unchanged trazodone (traZODONE 50 mg Tab) 30 EA, 0 Refill(s), take 1 tablet by mouth at bedtime if needed Unchanged triamcinolone topical (triamcinolone Top 0.1% Crm 15 gram) 1 Application Topical 3 times a day Hidradenitis suppurativa BMI 27.0-27.9,adult Former smoker Allergies No Known Allergies Problems Ongoing - Any problem that you are currently receiving treatment for. Abscess of perineum Abscess of skin of abdomen Anxiety Auditory hallucination Bipolar disorder Hidradenitis suppurativa Nausea and vomiting PTSD (post-traumatic stress disorder) Patient Survey You may receive a survey via text or e-mail asking about your office visit. Please share your experience with us by completing your survey. We appreciate your feedback and thank you for choosing us for your care. [facility] Family Medicine Office/Clini c Noteon 12-11-2023 Family Medicine Office/Clinic Note Family Medicine Office/Clinic Note HPI Staff Deisy is a 38 year old female presenting with cyst came back Patient is Crystal Kauffman LENARD 09/03/23- Was tx'd with Keflex TID Onset: Started the last couple days Location: cyst on left side of abdomen Duration::_ Aggravated by: Relieved by: Timing:_ Associated Symptoms:chills she has not been able to eat, this has been making her sick to her stomach. She needs a print out of her dx's for work History of Present Illness 38 year old patient of Niecy Kauffman CNP presents today for evaluation of cyst that returned on her left lower abdomen. She reports the area popped up 2-3 days ago. She reports the area is tender and is causing her some nausea. She reports she immediately started taking some Keflex she had from her pcp but she doesn't have any left and this is why she came in today. She is asking for a note to be off work and a printout of her diagnosis to give to her employer. Review of Systems PHQ Score Initial Depression Screen Score: 0 SCORE Constitutional: no fever, no chills, no sweats, no weakness Skin: no Jaundice, no rash, no lesions, nopetechiae ENMT: no ear pain, no sore throat, no congestion, no hoarseness Respiratory: no shortness of breath, no cough, no orthopnea, no wheezing Cardiovascular: no chest pain, no palpitations, no edema Gastrointestinal: no nausea, no vomiting, no diarrhea, no GI bleeding Genitourinary: no dysuria, no hematuria, no discharge, no pain Musculoskeletal: no back pain, no trauma Neurologic: no headache, no dizziness, no numbness, no weakness Psychiatric: no sleeping problems, no irritability, no mood swings/depression. Heme/Lymph: no bleeding tendency, no bruising tendency, no petechiae, no swollen nodes Allergy/Immunologic: no seasonal allergies, no food allergies, no recurrent infections, no impaired immunity Additional ROS info: Except as noted in the above Review of Systems and in the History of Present Illness all other systems have been reviewed and are negative or noncontributory. Physical Exam Vitals & Measurements T: 36.7 ?C(Temporal Artery) HR: 80(Peripheral) RR: 18 BP: 118/82 SpO2: 97% HT: 64 in HT: 162.5 cm WT: 68.6 kg WT: 150.92 lb BMI: 25.98 General: alert, no acute distress Skin: warm, dry, small erythematous area LLQ with a whit center- non-tender to touch Head: no trauma, normocephalic Cardiovascular: regular rate and rhythm, normal peripheral perfusion Respiratory: Lungs CTA, respirations non labored Gastrointestinal: soft, non distended, no tenderness, no guarding. Back: No tenderness, Normal ROM, Normal alignment. Extremities: no deformity, no trauma Neurological: oriented x 4, LOC appropriate for age speech normal Psychiatric: cooperative, affect appropriate for age, normal judgement, normal psychiatric thoughts. Assessment/Plan 1. Folliculitis (L73.9: Follicular disorder, unspecified) Encouraged to use warm compresses Discussed with patient how the area forms Encouraged to not open the area Take all medication as prescribed until gone and to not save medications. Note completed for employer and given to patient f/u with pcp if no improvement Ordered: cephalexin, 500 mg = 1 cap(s), Oral, QID, X 7 day(s), # 28 cap(s), Refills(s) 0 sulfamethoxazole-trimethop rim, 1 tab(s), Oral, BID for 7 day(s), 14 tab(s), Refill(s) 0 2. Nausea in adult (R11.0: Nausea) Discussed with patient the infection can cause nausea- Patient reports Zofran has helped with this in the past Ordered: ondansetron, 4 mg = 1 tab(s), Oral, q8hr, PRN Nausea/Vomiting, # 9 tab(s), Refills(s) 0 3. Former smoker (Z87.891: Personal history of nicotine dependence) Encouraged to continue as a non-smoker 4. BMI 25.0-25.9,adult (Z68.25: Body mass index [BMI] 25.0-25.9, adult) Stable Encouraged daily exercise and portion control Follow-up No qualifying data available Patient Education Folliculitis Problem List/Past Medical History Ongoing Abscess of perineum Abscess of skin of abdomen Anxiety Auditory hallucination Bipolar disorder Hidradenitis suppurativa Nausea and vomiting PTSD (post-traumatic stress disorder) Historical No qualifying data Procedure/Surgical History delivery, delivery, delivery, Surgery. Medications aripiprazole 5 mg Tab Bactrim D.S. 800 mg-160 mg Tab, 1 tab(s), Oral, BID clindamycin 300 mg oral cap, 300 mg= 1 cap(s), Oral, BID hydrOXYzine pamoate 50 mg Cap Keflex 500 mg Cap, 500 mg= 1 cap(s), Oral, QID sertraline 50 mg Tab, 50 mg= 1 tab(s), Oral, Daily, 1 refills traZODONE 50 mg Tab triamcinolone Top 0.1% Crm 15 gram, 1 christine, Topical, TID Zofran 4 mg Tab, 4 mg= 1 tab(s), Oral, q8hr, PRN Allergies No Known Allergies Social History Tobacco - Medium Risk, 12/11/2023 Former smoker, quit more than 30 days ago, quit Beginning of 2023 Tobacco Use:. Cigarettes, Household tobacco concerns: No., 12/11/2023 Immunizati (more content not included)... [facility] Comment on above: Result Comment: Elec tronically Signed By: ASHLEY WILBURN CNP\.br\Date and Time Signed: 12/11/23 08:40 EDT Provider Letteron 12-11-2023 Provider Letter Provider Letter December 11, 2023 [address] [place] [id number] : 1985 To Whom It May Concern, Please excuse above patient from work due to cyst on abdomen. Date of Illness: From: _12-10-23 To: _12-12-23 May Return to Work On:12-13-23 Restrictions: _ None Comments: _ Sincerely, Family Medicine [address] [address] [facility] Ambulatory Visit Summaryon 0 09-03-2023 Ambulatory Visit Summary DEISY PORTILLO :1985 Visit Date:09/03/2023 Ambulatory Visit Instructions Your Diagnosis Abscess of skin of abdomen BMI 25.0-25.9,adult Former smoker Your Care Team Attending Physician - Crystal Reese Primary Care Physician - Crystal Reese This Is Your Medications List aripiprazole (aripiprazole 5 mg Tab) cephalexin (cephalexin 500 mg Cap) clindamycin (clindamycin 300 mg oral cap) hydrOXYzine (hydrOXYzine pamoate 50 mg Cap) ondansetron (ondansetron 4 mg Dis Tab) sertraline (sertraline 50 mg Tab) trazodone (traZODONE 50 mg Tab) triamcinolone topical (triamcinolone Top 0.1% Crm 15 gram) Procedures Performed delivery, delivery, delivery, Surgery. Discharge Vitals Temperature (Tympanic) 37.3 ?C Heart Rate (Peripheral) 70 Respiratory Rate 16 Blood Pressure 98/64 Height 162.5 cm Height 64 in Weight 68.3 kg Weight 150.26 lb BMI 25.87 Medications What How Much When Why Instructions Unchanged aripiprazole (aripiprazole 5 mg Tab) 30 EA, 0 Refill(s), take 1 tablet by mouth at bedtime Unchanged cephalexin (cephalexin 500 mg Cap) See instructions take 1 capsule by mouth three times a day (START THE FIRST SIGN OF FLARE UP) Unchanged clindamycin (clindamycin 300 mg oral cap) 1 Capsules By Mouth 2 times a day Unchanged hydrOXYzine (hydrOXYzine pamoate 50 mg Cap) 60 EA, 0 Refill(s), take 1 capsule by mouth twice a day if needed for anxiety Unchanged ondansetron (ondansetron 4 mg Dis Tab) 10 EA, 0 Refill(s), dissolve 1 tablet ON TONGUE every 8 hours if needed for nausea and vomiting Unchanged sertraline (sertraline 50 mg Tab) 1 Tablets By Mouth Every day 30 EA, 0 Refill(s), take 1 tablet by mouth every morning Unchanged trazodone (traZODONE 50 mg Tab) 30 EA, 0 Refill(s), take 1 tablet by mouth at bedtime if needed Unchanged triamcinolone topical (triamcinolone Top 0.1% Crm 15 gram) 1 Application Topical 3 times a day Hidradenitis suppurativa BMI 27.0-27.9,adult Former smoker Allergies No Known Allergies Problems Ongoing - Any problem that you are currently receiving treatment for. Abscess of perineum Abscess of skin of abdomen Anxiety Auditory hallucination Bipolar disorder Hidradenitis suppurativa PTSD (post-traumatic stress disorder) Patient Survey You may receive a survey via text or e-mail asking about your office visit. Please share your experience with us by completing your survey. We appreciate your feedback and thank you for choosing us for your care. [facility] Family Medicine Office/Clini c Noteon 09-03-2023 Family Medicine Office/Clinic Note HPI Staff Deisy is a 38 year old female presenting for acute visit LENARD 08/30/23 abscess of skin of abdomen started of Keflex TID Onset: 08/29/23 Pt has been nauseated and vomiting. pt didn't go to work last night. Pt has been taking Zofran and is helping with her stomach. Last time vomited was yesterday. History of Present Illness pt presents today for follow up on abscess and was having nausea and vomiting from the keflex. Review of Systems PHQ Score Initial Depression Screen Score: 0 SCORE Physical Exam Vitals & Measurements T: 37.3 ?C(Tympanic) HR: 70(Peripheral) RR: 16 BP: 98/64 SpO2: 98% HT: 64 in HT: 162.5 cm WT: 68.3 kg WT: 150.26 lb BMI: 25.87 General: alert, no acute distress ENMT: oral mucosa moist, no pharyngeal erythema or exudate Cardiovascular: regular rate and rhythm, normal peripheral perfusion Respiratory: Lungs CTA, respirations non labored Extremities: no deformity, no trauma Neurological: oriented x 4, LOC appropriate for age, CN II-XII intact, motor strength equal & normal bilaterally, speech normal Assessment/Plan 1. Abscess of skin of abdomen (L02.211: Cutaneous abscess of abdominal wall) abscess is healing well. did not fill back up with pus. not red or warm to touch. no longer oozing. 2. Nausea and vomiting (R11.2: Nausea with vomiting, unspecified) pt was having reflux and nausea and vomting form keflex. switched to clindamycin. pt has not vomited since yesterday. she started taking the clindamycin yestereday. 3. BMI 25.0-25.9,adult (Z68.25: Body mass index [BMI] 25.0-25.9, adult) BMi education complete 4. Former smoker (Z87.891: Personal history of nicotine dependence) continue not smoking Orders: clindamycin, 300 mg = 1 cap(s), Oral, BID, # 20 cap(s), Refills(s) 0, Pharmacy: [facility] #[id number], 162.5, cm, 08/29/23 11:49:00 EDT, Height/Length Dosing, 68.9, kg, 08/29/23 11:49:00 EDT, Weight Dosing sertraline, 50 mg = 1 tab(s), Oral, Daily, 30 EA, 0 Refill(s), take 1 tablet by mouth every morning, # 30 tab(s), Refills(s) 1, [facility]acy: [id number], 162.5, cm, 08/29/23 11:49:00 EDT, Height/Length Dosing, 68.9, kg, 08/29/23 11:49:00 EDT, Weight Dosing sertraline, 50 mg = 1 tab(s), Oral, Daily, 30 EA, 0 Refill(s), take 1 tablet by mouth every morning, # 30 tab(s), Refills(s) 1, Pharmacy: [email or web address][id number], 162.5, cm, 06/06/23 12:54:00 EST, Height/Length Dosing, 71.9, kg, 06/06/23 12:54:00 EST, Weight Dosing Follow-up No qualifying data available Problem List/Past Medical History Ongoing Abscess of perineum Abscess of skin of abdomen Anxiety Auditory hallucination Bipolar disorder Hidradenitis suppurativa Nausea and vomiting PTSD (post-traumatic stress disorder) Historical No qualifying data Procedure/Surgical History delivery, delivery, delivery, Surgery. Medications aripiprazole 5 mg Tab cephalexin 500 mg Cap, See Instructions clindamycin 300 mg oral cap, 300 mg= 1 cap(s), Oral, BID hydrOXYzine pamoate 50 mg Cap ondansetron 4 mg Dis Tab sertraline 50 mg Tab, 50 mg= 1 tab(s), Oral, Daily, 1 refills traZODONE 50 mg Tab triamcinolone Top 0.1% Crm 15 gram, 1 christine, Topical, TID Allergies No Known Allergies Social History Tobacco Former smoker, quit more than 30 days ago Tobacco Use:. Cigarettes, Household tobacco concerns: No., 09/03/2023 [facility] Comment on above: Result Comment: Elec tronically Signed By: Daly ARCHIBALD, Crystal Kumar\.br\Date and Time Signed: 09/03/23 10:45 EDT Provider Letteron 09-03-2023 Provider Letter (Inserted Image. Chayo ble to display) September 03, [address] [id number] : 1985 To Whom It May Concern, Please excuse above patient from work. Date of Illness: From: 08-29-23 To: 09-03-23 May Return to Work On:09-04-23 Restrictions: _ Comments: _None Sincerely, [place] [address] [facility] Provider Letteron 09-02-2023 Provider Letter (Inserted Image. Chayo ble to display) September 02, [address] [phone] : 1985 To Whom It May Concern, Please excuse above patient from work. Date of Illness: From: To: 09/02/2023 May Return to Work On: 09/03/2023 Sincerely, ZAIDA Peters [address] [address] [facility] Provider Letter (Inserted Image. Chayo ble to display) September 02, 2023 DEISY [address]O [address] [place] [id number] : 1985 To Whom It May Concern, Please excuse above patient from work. Date of Illness: From: 09/01/2023 To: 09/02/2023 May Return to Work On: 09/03/2023 Sincerely, ZAIDA Peters [address] [address] [facility] Family Medicine Office/Clini c Noteon 08-30-2023 Family Medicine Office/Clinic Note HPI Staff Deisy is a 38 year old female presenting for acute visit Onset: 1 day ago Pt has cyst left side abdomen near belly button, area is red, painful denies any drainage History of Present Illness pt presents with abscess on abdomen Review of Systems PHQ Score Initial Depression Screen Score: 0 SCORE Physical Exam Vitals & Measurements T: 36.9 ?C(Tympanic) HR: 68(Peripheral) RR: 18 BP: 116/80 SpO2: 99% HT: 64 in HT: 162.5 cm WT: 68.9 kg WT: 151.58 lb BMI: 26.09 General: alert, no acute distress ENMT: oral mucosa moist, no pharyngeal erythema or exudate Cardiovascular: regular rate and rhythm, normal peripheral perfusion Respiratory: Lungs CTA, respirations non labored Extremities: no deformity, no trauma Neurological: oriented x 4, LOC appropriate for age, CN II-XII intact, motor strength equal & normal bilaterally, speech normal Procedure pt placed in supine position. area was cleansed with betadine. area was numbed with 1% lidocaine. small incision was made with scalpel. large amount of thick, chunky white discharge was drained from incision. area was then cleansed again and covered with bandage. pt tolerated procedure well Assessment/Plan 1. Abscess of skin of abdomen (L02.211: Cutaneous abscess of abdominal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 Hauser on 05-24-2023 WBC corrected for nucl RBC Auto (Bld) [#/Vol] 5.4 10*3/uL 3.8-11.6 [facility] Lymphocytes Auto (Bld) [#/Vo l]Ordered By: Haja Hausre on 05-24-2023 Lymphocytes (Bld) [#/Vol] 2.3 10*3/uL 1.00-4.8 [facility] Lymphocytes/100 WBC Auto (Bl d)Ordered By: Haja Hauser on 05-24-2023 Lymphocytes/100 WBC (Bld) 42.4 % . [facility] MCH Auto (RBC) [Entitic mass ]Ordered By: Haja Hauser on 05-24-2023 MCH (RBC) [Entitic mass] 31.1 pg 24.7-34.3 [facility] MCHC Auto (RBC) [Mass/Vol]Or dered By: Haja Hauser on 05-24-2023 MCHC (RBC) [Mass/Vol] 33.6 g/dL 32.0-35.0 [facility] MCV Auto (RBC) [Entitic vol] Ordered By: Haja Hauser on 05-24-2023 MCV (RBC) [Entitic vol] 92.5 fL 80-100 [facility] Monocytes Auto (Bld) [#/Vol] Ordered By: Haja Hauser on 05-24-2023 Monocytes (Bld) [#/Vol] 0.2 10*3/uL 0.0-0.8 [facility] Monocytes/100 WBC Auto (Bld) Ordered By: Haja Hauser on 05-24-2023 Monocytes/100 WBC (Bld) 4.4 % . [facility] Neutrophils Auto (Bld) [#/Vo l]Ordered By: Haja Hauser on 05-24-2023 Neutrophils (Bld) [#/Vol] 2.7 10*3/uL 1.8-7.7 [facility] Neutrophils/100 WBC Auto (Bl d)Ordered By: Haja Hauser on 05-24-2023 Neutrophils/100 WBC (Bld) 50.3 % . [facility] Nucleated erythrocytes [Pres ence] in Blood by Automated countOrdered By: Haja Hauser on 05-24-2023 Nucleated RBC Auto Ql (Bld) 0.1 /100{WBC} 0-0.5 [facility] Platelet mean volume Auto (B ld) [Entitic vol]Ordered By: Haja Hauser on 05-24-2023 Platelet mean volume (Bld) [Entitic vol] 6.7 fL 6.3-10.7 [facility] Platelets Auto (Bld) [#/Vol] Ordered By: Haja Hauser on 05-24-2023 Platelets (Bld) [#/Vol] 239 10*3/uL 150-450 [facility] RBC Auto (Bld) [#/Vol]Ordere d By: Haja Hauser on 05-24-2023 RBC (Bld) [#/Vol] 3.87 10*6/uL 3.60-5.00 [facility] WBC Auto (Bld) [#/Vol]Ordere d By: Haja Hauser on 05-24-2023 WBC (Bld) [#/Vol] 5.4 10*3/uL 3.8-11.[address] [facility] [address] abdomen pelvis w conon CT abdomen pelvis w con [place] [address] CT Scan Report Signed Patient: Deisy Portillo MR#: [id number] 468 : 1985 Acct:[id number] Age/Sex: 38 / F ADM Date: 05/21/23 Loc: ER Room: Type: [facility] ER Attending Dr: Copies to: Lucy Hardy DO Ordering Provider: Lucy Hardy DO Date of Service: 05/21/23 CT/CT abdomen pelvis w con: Abdominal Pain CT Abdomen and Pelvis withcontrast TECHNIQUE: Axial imaging with 2-D reconstruction.90 cc of Isovue-300. The CT exam was performed using one or more the following dose reduction techniques: Automated exposure control, adjustment of the MA and/or Kv according to patient size, or use of the iterative reconstruction technique. COMPARISON: None History: Abdominal pain. Vomiting. LIMITATIONS: None LOWER THORAX mild atelectasis. LIVER: Hepatic steatosis. GALLBLADDER: No gallbladder abnormality identified. BILE DUCTS: No dilatation SPLEEN: Unremarkable PANCREAS: Unremarkable ADRENAL GLANDS: Unremarkable KIDNEYS:Tiny calculus upper pole left kidney. No hydronephrosis. AORTA: No abdominal aortic aneurysm identified. Mild atherosclerosis. RETROPERITONEUM: No significant retroperitoneal abnormalities identified. MESENTERY:Unremarkable SMALL BOWEL: The small bowel loops are nondistended. Mild wall thickening of the distal portion of the stomach. May consider gastritis. APPENDIX: The appendix is normal. COLON: Wall thickening of the descending and sigmoid colon. Consider underdistention versus mild colitis. Moderate stool in proximal colon. URINARY BLADDER: Urinary bladder is unremarkable. REPRODUCTIVE SYSTEM: Reproductive structures are unremarkable. Tampon in the vaginal cavity. PNEUMOPERITONEUM: None PERITONEAL FLUID:None BONY STRUCTURES: Unremarkable ABDOMINAL WALL: Hyperdensity in the rectus sheath measures up to 19 mm. This is seen with the images 72-77. Small fat-containing umbilical hernia. CT/CT abdomen pelvis w con IMPRESSION: Suspected small rectus sheath hematoma. Mild wall thickening of the descending and sigmoid colon. Consider underdistention versus mild colitis. No bowel obstruction. The wall thickening of the distal portion of stomach. May consider mild gastritis. Hepatic steatosis. Small fat-containing umbilical hernia. Impression dictated by: Michael López M.D.05/22/2023 8:03 AM Dictation Location: [place] [address] Transcribed By: [facility] 05/22/23 0803 Dictated By: Michael López DO 05/22/23 0756 Signed By: 05/22/23 0803 Normal [facility] Alanine aminotransferase [En zymatic activity/volume] in Serum or PlasmaOrdered By: Lucy Hardy on 05-21-2023 ALT [Catalytic activity/Vol] 18 U/L 7-52 [facility] Albumin [Mass/volume] in Ser um or Plasma by Bromocresol green (BCG) dye binding methoOrdered By: Lucy Hardy on 05-21-2023 Albumin BCG dye [Mass/Vol] 4.6 g/dL 3.5-5.7 [facility] Alkaline phosphatase [Enzyma tic activity/volume] in Serum or PlasmaOrdered By: Lucy Hardy on 05-21-2023 ALP [Catalytic activity/Vol] 99 U/L 34-104 [facility] Aspartate aminotransferase [ Enzymatic activity/volume] in Serum or PlasmaOrdered By: Lucy Hardy on 05-21-2023 AST [Catalytic activity/Vol] 17 U/L 13-39 [facility] Basic Metabolic Panelon 05-06 Anion gap [Moles/Vol] 12.3 mmol/L Normal 6.0-15.0 [facility] Comment on above: Performed By: #### H EPATIC, LIPASE, CBC, BMP, PT #### [facility] [address] Calcium [Mass/Vol] 9.9 mg/dL Normal 8.6-10.3 [facility] Comment on above: Performed By: #### H EPATIC, LIPASE, CBC, BMP, PT #### [facility] [address] Chloride [Moles/Vol] 106 mmol/L Normal 98-107 [facility] Comment on above: Performed By: #### H EPATIC, LIPASE, CBC, BMP, PT #### [facility] [address] [place] [address] CO2 [Moles/Vol] 26.9 mmol/L Normal 21.0-31.0 [facility] Comment on above: Performed By: #### H EPATIC, LIPASE, CBC, BMP, PT #### [facility] [address] [place] [address] Creatinine [Mass/Vol] 0.71 mg/dL Normal 0.60-1.20 [facility] Comment on above: Performed By: #### H EPATIC, LIPASE, CBC, BMP, PT #### [facility] [address] [place] [address] Creatinine Clr Calc Pharmacy 96.63 Normal [facility] Comment on above: Performed By: #### H EPATIC, LIPASE, CBC, BMP, PT #### [facility] [address] GFR/1.73 sq M.predicted MDRD (S/P/Bld) [Vol rate/Area] mL/min/{1.73_m2} Normal [facility] Comment on above: Performed By: #### H EPATIC, LIPASE, CBC, BMP, PT #### [facility] [address] Glucose [Mass/Vol] 100 mg/dL Normal 70-100 [facility] Comment on above: Result Comment: [facility] Glucose Reference Range is dependent on time and content of last meal. Glucose of more than 200 mg/dL in a nonstressed, ambulatory subject supports the diagnosis of Diabetes Mellitus. ADA recommended reference range Performed By: #### H EPATIC, LIPASE, CBC, BMP, PT #### [facility] [address] Potassium [Moles/Vol] 4.2 mmol/L Normal 3.5-5.1 [facility] Comment on above: Performed By: #### H EPATIC, LIPASE, CBC, BMP, PT #### [facility] [address] Sodium [Moles/Vol] 141 mmol/L Normal 136-145 [facility] Comment on above: Performed By: #### H EPATIC, LIPASE, CBC, BMP, PT #### [facility] [address] [place] [address] Urea nitrogen [Mass/Vol] 12 mg/dL Normal 7-25 [facility] Comment on above: Performed By: #### H EPATIC, LIPASE, CBC, BMP, PT #### [facility] [address] [place] [address] [place] Basophils Auto (Bld) [#/Vol] Ordered By: Lucy Hardy on 05-21-2023 Basophils (Bld) [#/Vol] 0.0 10*3/uL 0.0-0.2 [facility] Basophils/100 WBC Auto (Bld) Ordered By: Lucy Hardy on 05-21-2023 Basophils/100 WBC (Bld) 0.3 % . [facility] Bilirubin Auto test strip Ql (U)Ordered By: Lucy Hardy on 05-21-2023 Bilirubin Ql (U) Negative Negative [facility] Bilirubin.direct [Mass/volum e] in Serum or PlasmaOrdered By: Lucy Hardy on 05-21-2023 Bilirubin.direct [Mass/Vol] 0.10 mg/dL 0.03-0.18 [facility] Bilirubin.total [Mass/volume ] in Serum or PlasmaOrdered By: Lucy Hardy on 05-21-2023 Bilirubin [Mass/Vol] 0.4 mg/dL 0.3-1.0 [facility] COVID CepheidOrdered By: Juany Hardy on 05-21-2023 SARS-CoV-2 (COVID-19) Ab IA Ql Negative Negative [facility] Comment on above: This is a duplicate Cepheid Xpert Xpress CoV-2/Flu/RSV Plus RNA by RT-PCR result to be used for statistical tracking purpose only. SARS-CoV-2 (COVID-19) RNA DESI+probe Ql (Unsp spec) [facility] COVID-19 / Flu A/B / RSV PCR on 05-21-2023 SARS-CoV-2 (COVID-19) RNA DESI+probe Ql (Unsp spec) COVID-19 Cepheid Result Negative for SARS-CoV-2 RNA by RT-PCR Flu A Cepheid Result Negative for Flu A RNA by RT-PCR Flu B Cepheid Result Negative for Flu B RNA by RT-PCR RSV Cepheid Result Negative for RSV RNA by RT-PCR COVID19 Blank Space -- Reference: Negative COVID19 Blank Space -- Cepheid Disclaimer The Cepheid Xpert Xpress CoV-2/Flu/RSV Plus has Cepheid Disclaimer not been FDA cleared or approved; this test has Cepheid Disclaimer been authorized by FDA under an EUA for use by Cepheid Disclaimer authorized laboratories; this test has been Cepheid Disclaimer authorized only for the simultaneous qualitative Cepheid Disclaimer detection and differentiation of nucleic acids from Cepheid Disclaimer SARS-CoV-2, influenza A, influenza B, and Cepheid Disclaimer respiratory syncytial virus (RSV), and not for any Cepheid Disclaimer other viruses or pathogens; and this test is only Cepheid Disclaimer authorized for the duration of the declaration that Cepheid Disclaimer circumstances exist justifying the authorization of Cepheid Disclaimer emergency use of in vitro diagnostic tests for Cepheid Disclaimer detection and/or diagnosis of COVID-19 under Cepheid Disclaimer Section 564(b)(1) of the Act, 21 U.S.C. 360bbb- Cepheid Disclaimer 3(b)(1), unless the authorization is terminated or Cepheid Disclaimer revoked sooner. PERFORMED BY: [place] [address] PATHOLOGIST PERSONAL DEVELOPMENT COACH AYANA CARDOZA M.D. Normal [facility] Comment on above: Performed By: #### C OVID19 FLU RSV, CEPHEID NEG #### [address] Calcium [Mass/volume] in Ser um or PlasmaOrdered By: Lucy Hardy on 05-21-2023 Calcium [Mass/Vol] 9.9 mg/dL 8.6-10.3 [facility] Carbon dioxide, total [Moles /volume] in Serum or PlasmaOrdered By: Lucy Hardy on 05-21-2023 CO2 [Moles/Vol] 26.9 mmol/L 21.0-31.0 [facility] Cepheid COVID PCR Negativeon 05-21-2023 SARS-CoV-2 (COVID-19) RNA DESI+probe Ql (Unsp spec) Negative Normal Negative [facility] Comment on above: Result Comment: This is a duplicate Cepheid Xpert Xpress CoV-2/Flu/RSV Plus RNA by RT-PCR result to be used for statistical tracking purpose only. PERFORMED BY: [place] [address] PATHOLOGIST PERSONAL DEVELOPMENT COACH AYANA CARDOZA M.D. Performed By: #### C OVID19 FLU RSV, CEPHEID NEG #### [address] Chloride [Moles/volume] in S jordon or PlasmaOrdered By: Lucy Hardy on 05-21-2023 Chloride [Moles/Vol] 106 mmol/L 98-107 [facility] Complete Blood Count Auto Di ffon 05-21-2023 Basophils (Bld) [#/Vol] 0.0 10*3/uL Normal 0.0-0.2 [facility] Comment on above: Result Comment: PERF ORMED BY: [place] [address] PATHOLOGIST PERSONAL DEVELOPMENT COACH AYANA CARDOZA M.D. Performed By: #### H EPATIC, LIPASE, CBC, BMP, PT #### [address] Basophils/100 WBC (Bld) 0.3 % Normal . [facility] Comment on above: Performed By: #### H EPATIC, LIPASE, CBC, BMP, PT #### [address] Eosinophils (Bld) [#/Vol] 0.0 10*3/uL Normal 0.0-0.45 [facility] Comment on above: Performed By: #### H EPATIC, LIPASE, CBC, BMP, PT #### [address] Eosinophils/100 WBC (Bld) 0.2 % Normal . [facility] Comment on above: Performed By: #### H EPATIC, LIPASE, CBC, BMP, PT #### [address] Erythrocyte distribution width (RBC) [Ratio] 13.7 % Normal 11.9-15.3 [facility] Comment on above: Performed By: #### H EPATIC, LIPASE, CBC, BMP, PT #### [address] Hematocrit (Bld) [Volume fraction] 39.7 % Normal 34.0-46.4 [facility] Comment on above: Performed By: #### H EPATIC, LIPASE, CBC, BMP, PT #### [address] Hemoglobin (Bld) [Mass/Vol] 13.6 g/dL Normal 11.8-15.4 [facility] Comment on above: Performed By: #### H EPATIC, LIPASE, CBC, BMP, PT #### [address] Lymphocytes (Bld) [#/Vol] 2.7 10*3/uL Normal 1.00-4.8 [facility] Comment on above: Performed By: #### H EPATIC, LIPASE, CBC, BMP, PT #### [address] Lymphocytes/100 WBC (Bld) 32.0 % Normal . [facility] Comment on above: Performed By: #### H EPATIC, LIPASE, CBC, BMP, PT #### [address] MCH (RBC) [Entitic mass] 31.5 pg Normal 24.7-34.3 [facility] Comment on above: Performed By: #### H EPATIC, LIPASE, CBC, BMP, PT #### [address] MCV (RBC) [Entitic vol] 91.9 fL Normal 80-100 [facility] Comment on above: Performed By: #### H EPATIC, LIPASE, CBC, BMP, PT #### [address] Mean Corpuscular HGB Conc 34.3 g/dL Normal 32.0-35.0 [facility] Comment on above: Performed By: #### H EPATIC, LIPASE, CBC, BMP, PT #### [address] Monocytes (Bld) [#/Vol] 0.2 10*3/uL Normal 0.0-0.8 [facility] Comment on above: Performed By: #### H EPATIC, LIPASE, CBC, BMP, PT #### [facility] [address] [place] [address] Monocytes/100 WBC (Bld) 19.92 % Normal 0.00-20.00 [facility] Comment on above: Performed By: #### H EPATIC, LIPASE, CBC, BMP, PT #### [address] Monocytes/100 WBC (Bld) 2.6 % Normal . [facility] Comment on above: Performed By: #### H EPATIC, LIPASE, CBC, BMP, PT #### [address] Neutrophils (Bld) [#/Vol] 5.5 10*3/uL Normal 1.8-7.7 [facility] Comment on above: Performed By: #### H EPATIC, LIPASE, CBC, BMP, PT #### [address] Neutrophils/100 WBC (Bld) 64.9 % Normal . [facility] Comment on above: Performed By: #### H EPATIC, LIPASE, CBC, BMP, PT #### [address] NRBC% 0.1 /100{WBC} Normal 0-0.5 [facility] Comment on above: Performed By: #### H EPATIC, LIPASE, CBC, BMP, PT #### [facility] [address] [place] [address] Platelet mean volume (Bld) [Entitic vol] 6.4 fL Normal 6.3-10.7 [facility] Comment on above: Performed By: #### H EPATIC, LIPASE, CBC, BMP, PT #### [facility] [address] [place] [address] [place] Platelets (Bld) [#/Vol] 307 10*3/uL Normal 150-450 [facility] Comment on above: Performed By: #### H EPATIC, LIPASE, CBC, BMP, PT #### [facility] [address] RBC (Bld) [#/Vol] 4.32 10*6/uL Normal 3.60-5.00 [facility] Comment on above: Performed By: #### H EPATIC, LIPASE, CBC, BMP, PT #### [facility] [address] [place] [id number] [facility] WBC (Bld) [#/Vol] 8.4 10*3/uL Normal 3.8-11.6 [facility] Comment on above: Performed By: #### H EPATIC, LIPASE, CBC, BMP, PT #### [facility] [address] Creatinine [Mass/volume] in Serum or PlasmaOrdered By: Lucy Hardy on 05-21-2023 Creatinine [Mass/Vol] 0.71 mg/dL 0.60-1.20 [facility] ECG 12 lead ECGon 05-21-2023 ECG 12 lead ECG [facility] [address] [place] [address] Electrocardiograph Report Signed Patient: Deisy Portillo MR#: [id number] 468 : 1985 Acct:[id number] Age/Sex: 38 / F ADM Date: 05/21/23 Loc: ER Room: Type: [facility] Attending Dr: Ordering Provider: Lucy Hardy DO Date of Service: 05/21/23 ECG/ECG 12 lead ECG: Recheck/Abnormal Lab/Rx Copies to: Test Reason : Blood Pressure : 128/063 mmHG Vent. Rate : 104 BPM Atrial Rate : 104 BPM P-R Int : 136 ms QRS Dur : 074 ms QT Int : 352 ms P-R-T Axes : 081 087 066 degrees QTc Int : 462 ms Sinus tachycardia Right atrial enlargement Borderline ECG No previous ECGs available Confirmed by LUCY HARDY DO ([id number]) on 05/21/2023 8:47:44 PM Referred By: Electronically Signed By:LUCY HARDY DO Transcribed By: [facility] Signed By Lucy Hardy DO 05/21 Normal [facility] Eosinophils Auto (Bld) [#/Vo l]Ordered By: Lucy Hardy on 05-21-2023 Eosinophils (Bld) [#/Vol] 0.0 10*3/uL 0.0-0.45 [facility] Eosinophils/100 WBC Auto (Bl d)Ordered By: Lucy Hardy on 05-21-2023 Eosinophils/100 WBC (Bld) 0.2 % . [facility] Erythrocyte distribution wid th Auto (RBC) [Ratio]Ordered By: Lucy Hardy on 05-21-2023 Erythrocyte distribution width (RBC) [Ratio] 13.7 % 11.9-15.3 [facility] Globulin Calc (S) [Mass/Vol] Ordered By: Lucy Hardy on 05-21-2023 Globulin (S) [Mass/Vol] 3.2 g/dL [facility] Glucose [Mass/volume] in Ser um or PlasmaOrdered By: Lucy Hardy on 05-21-2023 Glucose [Mass/Vol] 100 mg/dL 70-100 [facility] Comment on above: ADA recommended refe rence rangeRandom Glucose Reference Range is dependent on time and content of last meal. Glucose of more than 200 mg/dL in a nonstressed, ambulatory subject supports the diagnosis of Diabetes Mellitus. HCG ( test) IA.rapi d Ql (U)Ordered By: Lucy Hardy on 05-21-2023 HCG ( test) Ql (U) Negative [facility] HCG,Urineon 05-21-2023 Beta HCG ( test) Ql (U) Negative Normal [facility] Comment on above: Order Comment: Name Collection Type:: Clean-Voided Midstream Result Comment: PERF ORMED BY: [place] [address] PATHOLOGIST PERSONAL DEVELOPMENT COACH AYANA CARDOZA M.D. Performed By: #### H EPATIC, LIPASE, CBC, BMP, PT #### [address] Hematocrit Auto (Bld) [Volum e fraction]Ordered By: Lucy Hardy on 05-21-2023 Hematocrit (Bld) [Volume fraction] 39.7 % 34.0-46.4 [facility] Hemoglobin [Mass/volume] in BloodOrdered By: Lucy Hardy on 05-21-2023 Hemoglobin (Bld) [Mass/Vol] 13.6 g/dL 11.8-15.4 [facility] Hepatic Panelon 05-21-2023 Albumin [Mass/Vol] 4.6 g/dL Normal 3.5-5.7 [facility] Comment on above: Performed By: #### H EPATIC, LIPASE, CBC, BMP, PT #### [facility] [address] Albumin/Globulin [Mass ratio] 1.4 {ratio} Normal [facility] Comment on above: Performed By: #### H EPATIC, LIPASE, CBC, BMP, PT #### [facility] [address] ALP [Catalytic activity/Vol] 99 U/L Normal 34-104 [facility] Comment on above: Performed By: #### H EPATIC, LIPASE, CBC, BMP, PT #### [facility] [address] [place] [address] [place] ALT [Catalytic activity/Vol] 18 U/L Normal 7-52 [facility] Comment on above: Performed By: #### H EPATIC, LIPASE, CBC, BMP, PT #### [facility] [address] [place] [address] [place] AST [Catalytic activity/Vol] 17 U/L Normal 13-39 [facility] Comment on above: Performed By: #### H EPATIC, LIPASE, CBC, BMP, PT #### [facility] [address] [place] [id number] [place] Bilirubin [Mass/Vol] 0.4 mg/dL Normal 0.3-1.0 [facility] Comment on above: Performed By: #### H EPATIC, LIPASE, CBC, BMP, PT #### [facility] [address] [place] [address] [place] Bilirubin,Indirect 0.3 mg/dL Normal [facility] Comment on above: Performed By: #### H EPATIC, LIPASE, CBC, BMP, PT #### [facility] [address] [place] [address] [place] Bilirubin.indirect [Mass/Vol] 0.10 mg/dL Normal 0.03-0.18 [facility] Comment on above: Performed By: #### H EPATIC, LIPASE, CBC, BMP, PT #### [facility] [address] Globulin (S) [Mass/Vol] 3.2 g/dL Normal [facility] Comment on above: Performed By: #### H EPATIC, LIPASE, CBC, BMP, PT #### [facility] [address] Protein [Mass/Vol] 7.8 g/dL Normal 6.4-8.9 [facility] Comment on above: Performed By: #### H EPATIC, LIPASE, CBC, BMP, PT #### [facility] [address] [place] [address] [place] INR in Platelet poor plasma by Coagulation assayOrdered By: Lucy Hardy on 05-21-2023 INR Coag (PPP) [Relative time] 1.0 {INR} [facility] Comment on above: INR Therapeutic Rang e A) Pre- and Peroperative OAT started two weeks before surgery. NOT HIP SURGERY: 1.5 - 2.5 HIP SURGERY: 2 - 3B) Primary and secondary prevention of venous THROMBOSIS: 2 - 3C) Active venous thrombosis, pulmonary embolismand prevention of recurrent venous thrombosis: 2 - 3D) Prevention of arterial thromboembolismincluding patients with mechanical heart valves: 3 - 4.5 Ketones Auto test strip (U) [Mass/Vol]Ordered By: Lucy Hardy on 05-21-2023 Ketones (U) [Mass/Vol] Negative Negative [facility] Leukocytes [#/volume] correc claudia for nucleated erythrocytes in Blood by Automated counOrdered By: Lucy Hardy on 05-21-2023 WBC corrected for nucl RBC Auto (Bld) [#/Vol] 8.4 10*3/uL 3.8-11.6 [facility] Lipaseon 05-21-2023 Lipase [Catalytic activity/Vol] 14.0 U/L Normal 11.0-82.0 [facility] Comment on above: Result Comment: PERF ORMED BY: [facility] [address] [place] [address] PATHOLOGIST PERSONAL DEVELOPMENT COACH AYANA CARDOZA M.D. Performed By: #### H EPATIC, LIPASE, CBC, BMP, PT #### [facility] [address] Lipase [Enzymatic activity/v olume] in Serum or PlasmaOrdered By: Lucy Hardy on 05-21-2023 Lipase [Catalytic activity/Vol] 14.0 U/L 11.0-82.0 [facility] Lymphocytes Auto (Bld) [#/Vo l]Ordered By: Lucy Hardy on 05-21-2023 Lymphocytes (Bld) [#/Vol] 2.7 10*3/uL 1.00-4.8 [facility] Lymphocytes/100 WBC Auto (Bl d)Ordered By: Lucy Hardy on 05-21-2023 Lymphocytes/100 WBC (Bld) 32.0 % . [facility] MCH Auto (RBC) [Entitic mass ]Ordered By: Lucy Hardy on 05-21-2023 MCH (RBC) [Entitic mass] 31.5 pg 24.7-34.3 [facility] MCHC Auto (RBC) [Mass/Vol]Or dered By: Lucy Hardy on 05-21-2023 MCHC (RBC) [Mass/Vol] 34.3 g/dL 32.0-35.0 [facility] MCV Auto (RBC) [Entitic vol] Ordered By: Lucy Hardy on 05-21-2023 MCV (RBC) [Entitic vol] 91.9 fL 80-100 [facility] Monocyte distribution width [Entitic volume] in Blood by AutomatedOrdered By: Lucy Hardy on 05-21-2023 Monocyte distribution width Auto (Bld) [Entitic vol] 19.92 % 0.00-20.00 [facility] Monocytes Auto (Bld) [#/Vol] Ordered By: Lucy Hardy on 05-21-2023 Monocytes (Bld) [#/Vol] 0.2 10*3/uL 0.0-0.8 [facility] Monocytes/100 WBC Auto (Bld) Ordered By: Lucy Hardy on 05-21-2023 Monocytes/100 WBC (Bld) 2.6 % . [facility] Neutrophils Auto (Bld) [#/Vo l]Ordered By: Lucy Hardy on 05-21-2023 Neutrophils (Bld) [#/Vol] 5.5 10*3/uL 1.8-7.7 [facility] Neutrophils/100 WBC Auto (Bl d)Ordered By: Lucy Hardy on 05-21-2023 Neutrophils/100 WBC (Bld) 64.9 % . [facility] No Panel InformationOrdered By: Lucy Hardy on 05-21-2023 Estimated GFR (CKD-EPI) > 60.0 mL/Min [facility] Creatinine Clearance (Chem 96.63 [facility] Nucleated erythrocytes [Pres ence] in Blood by Automated countOrdered By: Lucy Hardy on 05-21-2023 Nucleated RBC Auto Ql (Bld) 0.1 /100{WBC} 0-0.5 [facility] Platelet mean volume Auto (B ld) [Entitic vol]Ordered By: Lucy Hardy on 05-21-2023 Platelet mean volume (Bld) [Entitic vol] 6.4 fL 6.3-10.7 [facility] Platelets Auto (Bld) [#/Vol] Ordered By: Lucy Hardy on 05-21-2023 Platelets (Bld) [#/Vol] 307 10*3/uL 150-450 [facility] Potassium [Moles/volume] in Serum or PlasmaOrdered By: Lucy Hardy on 05-21-2023 Potassium [Moles/Vol] 4.2 mmol/L 3.5-5.1 [facility] Protein Auto test strip (U) [Mass/Vol]Ordered By: Lucy Hardy on 05-21-2023 Protein (U) [Mass/Vol] Negative Negative [facility] Protein [Mass/volume] in Ser um or PlasmaOrdered By: Lucy Hardy on 05-21-2023 Protein [Mass/Vol] 7.8 g/dL 6.4-8.9 [facility] Prothrombin Time INRon 05-21 INR Coag (PPP) [Relative time] 1.0 {INR} Normal [facility] Comment on above: Result Comment: INR Therapeutic Range A) Pre- and Peroperative OAT started two weeks before surgery. NOT HIP SURGERY: 1.5 - 2.5 HIP SURGERY: 2 - 3 B) Primary and secondary prevention of venous THROMBOSIS: 2 - 3 C) Active venous thrombosis, pulmonary embolism and prevention of recurrent venous thrombosis: 2 - 3 D) Prevention of arterial thromboembolism including patients with mechanical heart valves: 3 - 4.5 PERFORMED BY: [place] [address] PATHOLOGIST PERSONAL DEVELOPMENT COACH AYANA CARDOZA M.D. Performed By: #### H EPATIC, LIPASE, CBC, BMP, PT #### [facility] [address] PT Coag (PPP) [Time] 11.6 s Normal 9.0-12.9 [facility] Comment on above: Result Comment: A he matocrit value greater than 55% may lead to inaccurate results in coagulation testing. Patients having hematocrit values >55% require a special collection tube for coagulation studies. Please contact the laboratory at [phone] for redraw instructions. Performed By: #### H EPATIC, LIPASE, CBC, BMP, PT #### [facility] [address] [id number] [facility] Prothrombin time (PT)Ordered By: Lucy Hardy on 05-21-2023 PT Coag (PPP) [Time] 11.6 s 9.0-12.9 [facility] Comment on above: A hematocrit value g reater than 55% may lead to inaccurate results in coagulation testing. Patients having hematocrit values >55% require a special collection tube for coagulation studies. Please contact the laboratory at [phone] for redraw instructions. RBC Auto (Bld) [#/Vol]Ordere d By: Lucy Hardy on 05-21-2023 RBC (Bld) [#/Vol] 4.32 10*6/uL 3.60-5.00 [facility] Serum or plasma albumin/glob ulin mass ratioOrdered By: Lucy Hardy on 05-21-2023 Albumin/Globulin [Mass ratio] 1.4 {ratio} [facility] Serum or plasma anion gap de terminationOrdered By: Lucy Hardy on 05-21-2023 Anion gap [Moles/Vol] 12.3 mmol/L 6.0-15.0 [facility] Serum or plasma non-glucuron idated bilirubin measurement (mass/volume)Ordered By: Lucy Hardy on 05-21-2023 Bilirubin.indirect [Mass/Vol] 0.3 mg/dL [facility] Sodium [Moles/volume] in Ser um or PlasmaOrdered By: Lucy Hardy on 05-21-2023 Sodium [Moles/Vol] 141 mmol/L 136-145 [facility] Urea nitrogen [Mass/volume] in Serum or PlasmaOrdered By: Lucy Hardy on 05-21-2023 Urea nitrogen [Mass/Vol] 12 mg/dL 7-25 [facility] Urinalysison 05-21-2023 Appearance (U) Clear Normal Clear [facility] Comment on above: Order Comment: Name Collection Type:: Clean-Voided Midstream Performed By: #### U A, UHCG #### [facility] [address] [place] [address] [place] Bilirubin,Urine Negative Normal Negative [facility] Comment on above: Order Comment: Name Collection Type:: Clean-Voided Midstream Performed By: #### U A, UHCG #### [facility] [address] [place] [address] [place] Color (U) Yellow Normal Yellow [facility] Comment on above: Order Comment: Name Collection Type:: Clean-Voided Midstream Performed By: #### U A, UHCG #### [facility] [address] [place] [address] [place] Glucose Ql (U) Normal Normal Normal [facility] Comment on above: Order Comment: Name Collection Type:: Clean-Voided Midstream Performed By: #### U A, UHCG #### [facility] [address] [place] [address] [place] Ketones Ql (U) Negative Normal Negative [facility] Comment on above: Order Comment: Name Collection Type:: Clean-Voided Midstream Performed By: #### U A, UHCG #### [address] Leukocyte esterase Test strip Ql (U) Negative Normal Negative [facility] Comment on above: Order Comment: Name Collection Type:: Clean-Voided Midstream Performed By: #### U A, UHCG #### [address] Nitrite,Urine Negative Normal Negative [facility] Comment on above: Order Comment: Name Collection Type:: Clean-Voided Midstream Performed By: #### U A, UHCG #### [address] Occult Blood,Urine Negative Normal Negative [facility] Comment on above: Order Comment: Name Collection Type:: Clean-Voided Midstream Performed By: #### U A, UHCG #### [address] pH (U) 7.5 [pH] Normal 5.0-9.0 [facility] Comment on above: Order Comment: Name Collection Type:: Clean-Voided Midstream Performed By: #### U A, UHCG #### [address] Protein,Urine Negative Normal Negative [facility] Comment on above: Order Comment: Name Collection Type:: Clean-Voided Midstream Performed By: #### U A, UHCG #### [address],Urine 1.020 Normal 1.001-1.030 [facility] Comment on above: Order Comment: Name Collection Type:: Clean-Voided Midstream Performed By: #### U A, UHCG #### [place] [address] [place] Urobilinogen,Urine Normal Normal Normal [facility] Comment on above: Order Comment: Name Collection Type:: Clean-Voided Midstream Performed By: #### U A, UHCG #### [address] Urine appearanceOrdered By: Lucy Hardy on 05-21-2023 Appearance (U) Clear Clear [facility] Urine colorOrdered By: Lucy Hardy on 05-21-2023 Color (U) Yellow Yellow [facility] Urine glucose measurement by automated test strip (mass/volume)Ordered By: Lucy Hardy on 05-21-2023 Glucose Auto test strip (U) [Mass/Vol] Normal mg/dL Normal [facility] Urine hemoglobin detection b y automated test stripOrdered By: Lucy Hardy on 05-21-2023 Hemoglobin Auto test strip Ql (U) Negative Negative [facility] Urine leukocyte esterase det ection by automated test stripOrdered By: Lucy Hardy on 05-21-2023 Leukocyte esterase Auto test strip Ql (U) Negative Negative [facility] Urine nitrite detection by a utomated test stripOrdered By: Lucy Haryd on 05-21-2023 Nitrite Auto test strip Ql (U) Negative Negative [facility] Urobilinogen Auto test strip (U) [Mass/Vol]Ordered By: Lucy Hardy on 05-21-2023 Urobilinogen (U) [Mass/Vol] Normal mg/dL Normal [facility] WBC Auto (Bld) [#/Vol]Ordere d By: Lucy Hardy on 05-21-2023 WBC (Bld) [#/Vol] 8.4 10*3/uL 3.8-11.6 [facility] pH Auto test strip (U)Ordere d By: Lucy Hardy on 05-21-2023 pH (U) 1.020 [pH] 1.001-1.030 [facility] pH (U) 7.5 [pH] 5.0-9.0 [facility] Cholesterol [Mass/volume] in Serum or PlasmaOrdered By: Francisco J Walker on 12-13-2021 Cholesterol [Mass/Vol] 188 mg/dL 140-200 [facility] Comment on above: Chol less than 200 m g/dl low risk Chol 201-239 mg/dl borderline risk Chol 240 mg/dl and greater high risk Cholesterol in LDL Calc [Mas s/Vol]Ordered By: Francisco J Walker on 12-13-2021 Cholesterol in LDL [Mass/Vol] 124 mg/dL 0-100 [facility] Comment on above: LDL ATP III CLASSIFI CATION LDL less than 100 mg/dL Optimal LDL 100-129 mg/dL Near or above optimal LDL 130-159 mg/dL Borderline high LDL 160-189 mg/dL High LDL greater than 189 mg/dL Very high Cholesterol in VLDL Calc [Ma ss/Vol]Ordered By: Francisco J Walker on 12-13-2021 Cholesterol in VLDL [Mass/Vol] 9 mg/dL [facility] No Panel InformationOrdered By: Francisco J Walker on 12-13-2021 25-Hydroxy Vitamin D Total 36.1 ng/mL 30-100 [facility] Comment on above: VITAMIN D STATUS 25( [place])VITAMIN D RANGE (ng/mL) Deficient <20 Insufficient 20 to <30 Sufficient 30 to 100 Reference: Sai MF,Catie TOBIN, Mic TIJERINA, et al. Evaluation,treatment, and prevention of vitamin D deficiency; an Endocrine Society clinical practice guideline. JCEM. 2010; 96(7):1911-30. Serum or plasma high density lipoprotein (HDL) cholesterol measurementOrdered By: Francisco J Walker on 12-13-2021 Cholesterol in HDL [Mass/Vol] 55 mg/dL 35-85 [facility] Comment on above: HDL CHOL ATP-III CLA SSIFICATION Cardiovascular Risk HDL > or equal to 60 mg/dL LOW HDL < 40 mg/dL HIGH Serum or plasma total choles terol/high density lipoprotein (HDL) cholesterol mass ratOrdered By: Francisco J Walker on 12-13-2021 Cholesterol.total/Chol esterol in HDL [Mass ratio] 3.4 {ratio} <5.0 [facility] TSH DL <= 0.005 mIU/L QnOrde red By: Francisco J Walker on 12-13-2021 TSH Qn 0.73 m[IU]/L 0.45-5.33 [facility] Triglyceride [Mass/volume] i n Serum or PlasmaOrdered By: Francisco J Walker on 12-13-2021 Triglyceride [Mass/Vol] 45 mg/dL 35-149 [facility] Comment on above: TRIG ATP III CLASSIF ICATION TRIG less than 150 mg/dL Normal TRIG 150-199 mg/dL Borderline high TRIG 200-500 mg/dL High TRIG greater than 500 mg/dL Very high Standard traceable to the Center for Disease Conrtrol and Prevention (CDC) test method. ACETAMINOPHENon 12-12-2021 Acetaminophen [Mass/Vol] ug/mL Normal 10.0-30.0 [facility] Comment on above: Performed By: #### E RUR, DRUGRPD, PREGU #### [facility] [address] [place] [address] Dr. Arias Delatorre CBC AUTO DIFFon 12-12-2021 BASO # 0.0 103/ul Normal 0.0-0.1 [facility] Comment on above: Performed By: #### C BC #### [facility] [address] [place] [address] Dr. Arias Delatorre Basophils/100 WBC (Bld) 0.2 % Normal 0.2-2.0 [facility] Comment on above: Performed By: #### C BC #### [facility] [address] [place] [address] Dr. Arias Delatorre EO # 0.0 103/ul Normal 0.0-0.7 [facility] Comment on above: Performed By: #### C BC #### [facility] [address] [place] [address] Dr. Arias Delatorre Eosinophils/100 WBC (Bld) 0.2 % Critically low 0.9-7.0 [facility] Comment on above: Performed By: #### C BC #### [facility] [address] [place] [address] Dr. Arias Delatorre Erythrocyte distribution width (RBC) [Ratio] 12.7 % Normal 11.0-15.0 [facility] Comment on above: Performed By: #### C BC #### [facility] [address] [place] [address] Dr. Arias Delatorre Hematocrit (Bld) [Volume fraction] 42.9 % Normal 36.0-48.0 [facility] Comment on above: Performed By: #### C BC #### [facility] [address] [place] [address] Dr. Arias Delatorre Hemoglobin (Bld) [Mass/Vol] 14.6 g/dL Normal 12.0-16.0 [facility] Comment on above: Performed By: #### C BC #### [facility] [address] [place] [address] Dr. Arias Delatorre IG # 0.03 10e3/ul Normal 0.00-0.03 [facility] Comment on above: Performed By: #### C BC #### [facility] [address] [place] [address] Dr. Arias Delatorre IG % 0.3 % Normal 0.0-0.5 [facility] Comment on above: Performed By: #### C BC #### [facility] [address] [place] [address] Dr. Arias Delatorre LYMPH # 2.8 103/ul Normal 1.2-3.8 [facility] Comment on above: Performed By: #### C BC #### [facility] [address] [place] [address] Dr. Arias Delatorre Lymphocytes/100 WBC (Bld) 30.6 % Normal 20.5-60.0 [facility] Comment on above: Performed By: #### C BC #### [facility] [address] [place] [address] Dr. Arias Delatorre MANUAL DIFF REQ NO Normal [facility] Comment on above: Performed By: #### C BC #### [facility] [address] [place] [address] Dr. Arias Delatorre MCH (RBC) [Entitic mass] 32.7 pg Normal 26.7-34.0 [facility] Comment on above: Performed By: #### C BC #### [facility] [address] [place] [address] Dr. Arias Delatorre MCHC (RBC) [Mass/Vol] 34.0 g/dL Normal 29.9-35.2 [facility] Comment on above: Performed By: #### C BC #### [facility] [address] [place] [address] Dr. Arias Delatorre MCV (RBC) [Entitic vol] 96.0 fL Normal 81.0-99.0 [facility] Comment on above: Performed By: #### C BC #### [facility] [address] [address] [address] Arias Delatorre MONO # 0.3 103/ul Normal 0.3-0.8 [facility] Comment on above: Performed By: #### C BC #### [facility] [address] [address] [address] Arias Delatorre Monocytes/100 WBC (Bld) 3.3 % Normal 1.7-12.0 [facility] Comment on above: Performed By: #### C BC #### [facility] [address] [address] [address] Arias Delatorre NEUT # 6.0 103/ul Normal 1.4-6.5 [facility] Comment on above: Performed By: #### C BC #### [facility] [address] [address] [address] Arias Delatorre Neutrophils/100 WBC (Bld) 65.4 % Normal 43.0-75.0 [facility] Comment on above: Performed By: #### C BC #### [facility] [address] [address] [address] Arias Delatorre Platelet mean volume (Bld) [Entitic vol] 8.9 fL Critically low 9.5-13.5 [facility] Comment on above: Performed By: #### C BC #### [facility] [address] [address] [address] Arias Delatorre PLT 201 103/ul Normal 150-450 [facility] Comment on above: Performed By: #### C BC #### [facility] [address] [address] [address] Arias Delatorre RBC 4.47 106/ul Normal 4.20-5.40 [facility] Comment on above: Performed By: #### C BC #### [facility] [address] [address] [address] Arias Delatrore WBC 9.1 103/ul Normal 4.0-11.0 [facility] Comment on above: Performed By: #### C BC #### [facility] [address] [place] [address] Dr. Arias Delatorre Covid-19 PCR ([facility])on SARS-CoV-2 (COVID-19) RNA DESI+probe Ql (Unsp spec) Not detected Normal NOT DETECTED [facility] Comment on above: Result Comment: When diagnostic [...] for this test is supported by the [place] of Health and Human Service's declaration that [...] longer be used). Performed By: #### C VDTB #### [facility] [address] [place] [address] Dr. Arias Delatorre DRUG SCREEN RAPID (URINE)on 12-12-2021 AMP Negative Normal NEGATIVE [facility] Comment on above: Performed By: #### E RUR, DRUGRPD, PREGU #### [facility] [address] [place] [address] Dr. Arias Delatorre BAR Negative Normal NEGATIVE [facility] Comment on above: Performed By: #### E RUR, DRUGRPD, PREGU #### [facility] [address] [place] [address] Dr. Arias Delatorre BUP Negative Normal NEGATIVE [facility] Comment on above: Performed By: #### E RUR, DRUGRPD, PREGU #### [facility] [address] [place] [address] Dr. Arias Delatorre BZO Negative Normal NEGATIVE [facility] Comment on above: Performed By: #### E RUR, DRUGRPD, PREGU #### [facility] [address] [place] [address] Dr. Arias Delatorre VERÓNICA Negative Normal NEGATIVE [facility] Comment on above: Performed By: #### E RUR, DRUGRPD, PREGU #### [facility] [address] [place] [address] Dr. Arias Delatorre CUT-OFFS SEE BELOW Normal [facility] Comment on above: Result Comment: AMP (Amphetamine): [...] By: #### E RUR, DRUGRPD, PREGU #### [facility] [address] [place] [address] Dr. Arias Delatorre DRUG CUT HEADER DRUG CLASS TEST SYST EM CUT-OFF CONCENTRATIONS ARE FOLLOWS: Normal [facility] Comment on above: Performed By: #### E RUR, DRUGRPD, PREGU #### [facility] [address] [place] [address] Dr. Arias Delatorre mAMP Negative Normal NEGATIVE [facility] Comment on above: Performed By: #### E RUR, DRUGRPD, PREGU #### [facility] [address] [place] [address] Dr. Arias Delatorre MTD Negative Normal NEGATIVE [facility] Comment on above: Performed By: #### E RUR, DRUGRPD, PREGU #### [facility] [address] [place] [address] Dr. Arias Delatorre OPI Negative Normal NEGATIVE [facility] Comment on above: Performed By: #### E RUR, DRUGRPD, PREGU #### [facility] [address] [place] [address] Dr. Arias Delatorre OXY Negative Normal NEGATIVE [facility] Comment on above: Performed By: #### E RUR, DRUGRPD, PREGU #### [facility] [address] [place] [address] Dr. Arias Delatorre PCP Negative Normal NEGATIVE [facility] Comment on above: Performed By: #### E RUR, DRUGRPD, PREGU #### [facility] [address] [place] [address] Dr. Arias Delatorre PPX Negative Normal NEGATIVE [facility] Comment on above: Performed By: #### E RUR, DRUGRPD, PREGU #### [facility] [address] [place] [address] Dr. Arias Delatorre TCA Negative Normal NEGATIVE [facility] Comment on above: Performed By: #### E RUR, DRUGRPD, PREGU #### [facility] [address] [place] [address] Dr. Arias Delatorre THC Positive Abnormal NEGATIVE [facility] Comment on above: Performed By: #### E RUR, DRUGRPD, PREGU #### [facility] [address] [place] [address] Dr. Arias Delatorre ER URINE PROFILEon 2 Bilirubin Ql (U) MODERATE Abnormal NEGATIVE [facility] Comment on above: Performed By: #### E RUR, DRUGRPD, PREGU #### [facility] [address] [place] [address] Dr. Arias Delatorre Clarity (U) SL CLOUDY Abnormal CLEAR [facility] Comment on above: Performed By: #### E RUR, DRUGRPD, PREGU #### [facility] [address] [place] [address] Dr. Arias Delatorre Color (U) YELLOW Normal YELLOW [facility] Comment on above: Performed By: #### E RUR, DRUGRPD, PREGU #### [facility] [address] [place] [address] Dr. Yilan Delatorre ERUAHD A micrscopic examina tion will be performed if indicated. Normal [facility] Comment on above: Performed By: #### E RUR, DRUGRPD, PREGU #### [facility] [address] [place] [address] Dr. Arias Delatorre Glucose Ql (U) Negative Normal NEGATIVE [facility] Comment on above: Performed By: #### E RUR, DRUGRPD, PREGU #### [facility] [address] [place] [address] Dr. Arias Delatorre Hemoglobin Ql (U) Negative Normal NEGATIVE [facility] Comment on above: Performed By: #### E RUR, DRUGRPD, PREGU #### [facility] [address] [place] [address] Dr. Arias Delatorre Ketones Ql (U) 15 mg/dl Abnormal NEGATIVE [facility] Comment on above: Performed By: #### E RUR, DRUGRPD, PREGU #### [facility] [address] [place] [address] Dr. Arias Delatorre LEUKOCYTES Negative Normal NEGATIVE [facility] Comment on above: Performed By: #### E RUR, DRUGRPD, PREGU #### [facility] [address] [place] [address] Dr. Arias Delatorre Nitrite Ql (U) Negative Normal NEGATIVE [facility] Comment on above: Performed By: #### E RUR, DRUGRPD, PREGU #### [facility] [address] [place] [address] Dr. Arias Delatorre pH (U) 5.5 [pH] Normal 5-9 [facility] Comment on above: Performed By: #### E RUR, DRUGRPD, PREGU #### [facility] [address] [place] [address] Dr. Arias Delatorre SPEC GRAVITY 1.030 Abnormal 1.005-<=1.0 25 [facility] Comment on above: Performed By: #### E RUR, DRUGRPD, PREGU #### [facility] [address] [place] [address] Dr. Arias Delatorre UA PROTEIN TRACE Normal NEGATIVE/ TRACE [facility] Comment on above: Performed By: #### E RUR, DRUGRPD, PREGU #### [facility] [address] [place] [address] Dr. Arias Delatorre UR MICRO IND NOT INDICATED Normal [facility] Comment on above: Performed By: #### E RUR, DRUGRPD, PREGU #### [facility] [address] [place] [address] Dr. Arias Delatorre Urobilinogen Qn (U) 0.2 {Alexandra'U}/dL Normal 0.2 - 1. 0 [facility] Comment on above: Performed By: #### E RUR, DRUGRPD, PREGU #### [facility] [address] [place] [address] Dr. Arias Delatorre ETHANOL (BLD ALC)on 12-13-19 22 ALC NOTE NOTE: 80 mg/dl is th e legal limit for a blood alcohol level Normal [facility] Comment on above: Performed By: #### E RUR, DRUGRPD, PREGU #### [facility] [address] [place] [address] Dr. Arias Delatorre Ethanol [Mass/Vol] mg/dL Normal [facility] Comment on above: Performed By: #### E RUR, DRUGRPD, PREGU #### [facility] [address] [place] [address] Dr. Arias Delatorre URon 12-12-2021 , QUAL Negative Normal NEGATIVE [facility] Comment on above: Performed By: #### E RUR, DRUGRPD, PREGU #### [facility] [address] [place] [address] Dr. Arias Delatorre PROF 14(COMP METB)on 022 Albumin [Mass/Vol] 5.0 g/dL Normal 3.4-5.0 [facility] Comment on above: Performed By: #### E RUR, DRUGRPD, PREGU #### [facility] [address] [place] [address] Dr. Arias Delatorre Albumin/Globulin [Mass ratio] 1.5 {ratio} Normal [facility] Comment on above: Performed By: #### E RUR, DRUGRPD, PREGU #### [facility] [address] [place] [address] Dr. Arias Delatorre ALP [Catalytic activity/Vol] 63 U/L Normal 46-116 [facility] Comment on above: Performed By: #### E RUR, DRUGRPD, PREGU #### [facility] [address] [place] [address] Dr. Arias Delatorre ALT [Catalytic activity/Vol] 16 U/L Normal 14-59 [facility] Comment on above: Performed By: #### E RUR, DRUGRPD, PREGU #### [facility] [address] [place] [address] Dr. Arias Delatorre Anion gap [Moles/Vol] 14.6 mmol/L Normal [facility] Comment on above: Performed By: #### E RUR, DRUGRPD, PREGU #### [facility] [address] [place] [address] Dr. Arias Delatorre AST [Catalytic activity/Vol] 13 U/L Critically low 15-37 [facility] Comment on above: Performed By: #### E RUR, DRUGRPD, PREGU #### [facility] [address] [place] [address] Dr. Arias Delatorre Bilirubin [Mass/Vol] 0.8 mg/dL Normal 0.2-1.0 [facility] Comment on above: Performed By: #### E RUR, DRUGRPD, PREGU #### [facility] [address] [place] [address] Dr. Arias Delatorre Calcium [Mass/Vol] 9.8 mg/dL Normal 8.5-10.1 [facility] Comment on above: Performed By: #### E RUR, DRUGRPD, PREGU #### [facility] [address] [place] [address] Dr. Arias Delatorre Chloride [Moles/Vol] 103 mmol/L Normal 98-107 [facility] Comment on above: Performed By: #### E RUR, DRUGRPD, PREGU #### [facility] [address] [place] [address] Dr. Arias Delatorre CO2 [Moles/Vol] 27.9 mmol/L Normal 21.0-32.0 [facility] Comment on above: Performed By: #### E RUR, DRUGRPD, PREGU #### [facility] [address] [place] [address] Dr. Arias Delatorre Creatinine [Mass/Vol] 1.04 mg/dL Critically high 0.55-1.02 [facility] Comment on above: Performed By: #### E RUR, DRUGRPD, PREGU #### [facility] [address] [place] [address] Dr. Arias Delatorre EGFR-AF [place] >60 Normal >=60 [facility] Comment on above: Performed By: #### E RUR, DRUGRPD, PREGU #### [facility] [address] [place] [address] Dr. Arias Delatorre EGFR-NON AF [place] 60 mL/min/1.73m2 Normal >=60 [facility] Comment on above: Performed By: #### E RUR, DRUGRPD, PREGU #### [facility] [address] [place] [address] Dr. Arias Delatorre Globulin (S) [Mass/Vol] 3.3 g/dL Normal [facility] Comment on above: Performed By: #### E RUR, DRUGRPD, PREGU #### [facility] [address] [place] [address] Dr. Arias Delatorre Glucose [Mass/Vol] 123 mg/dL Critically high 74-106 [facility] Comment on above: Performed By: #### E RUR, DRUGRPD, PREGU #### [facility] [address] [place] [address] Dr. Arias Delatorre Potassium [Moles/Vol] 3.5 mmol/L Normal 3.5-5.1 [facility] Comment on above: Performed By: #### E RUR, DRUGRPD, PREGU #### [facility] [address] [place] [address] Dr. Arias Delatorre Protein [Mass/Vol] 8.3 g/dL Critically high 6.4-8.2 [facility] Comment on above: Performed By: #### E RUR, DRUGRPD, PREGU #### [facility] [address] [place] [address] Dr. Arias Delatorre Sodium [Moles/Vol] 142 mmol/L Normal 136-145 [facility] Comment on above: Performed By: #### E RUR, DRUGRPD, PREGU #### [facility] [address] [place] [address] Dr. Arias Delatorre Urea nitrogen [Mass/Vol] 9.0 mg/dL Normal 7.0-18.0 [facility] Comment on above: Performed By: #### E RUR, DRUGRPD, PREGU #### [facility] [address] [place] [address] Dr. Arias Delatorre Urea nitrogen/Creatinine [Mass ratio] 8.7 mg/mg Normal [facility] Comment on above: Performed By: #### E RUR, DRUGRPD, PREGU #### [facility] [address] [place] [address] Dr. Arias Delatorre SALICYLATEon 12-12-2021 SALICYLATE 4.7 mg/dL Normal <=19.9 [facility] Comment on above: Performed By: #### A CET, CMP, SALYC #### [facility] [address] [place] [address] Dr. Arias Delatorre CULTURE URINEon 07-24-2021 CULTURE URINE Culture Observations : LIGHT GROWTH OF MIXED GENITAL CONOR. NO POTENTIAL PATHOGENS SEEN. Normal [facility] Comment on above: Performed By: #### U RCX #### [facility] [address] [place] [address] Dr. Arias Delatorre ER URINE PROFILEon Bilirubin Ql (U) Negative Normal NEGATIVE [facility] Comment on above: Performed By: #### U MICRO, ERUR, PREGU #### [facility] [address] [place] [address] Dr. Arias Delatorre Clarity (U) CLEAR Normal CLEAR [facility] Comment on above: Performed By: #### U MICRO, ERUR, PREGU #### [facility] [address] [address] [address] Arias Delatorre Color (U) LT. YELLOW Normal YELLOW [facility] Comment on above: Performed By: #### U MICRO, ERUR, PREGU #### [facility] [address] [address] [address] Arias Delatorre ERUAHD A micrscopic examina tion will be performed if indicated. Normal [facility] Comment on above: Performed By: #### U MICRO, ERUR, PREGU #### [facility] [address] [address] [address] Arias Delatorre Glucose Ql (U) Negative Normal NEGATIVE [facility] Comment on above: Performed By: #### U MICRO, ERUR, PREGU #### [facility] [address] [place] [address] Dr. Arias Delatorre Hemoglobin Ql (U) SMALL Abnormal NEGATIVE [facility] Comment on above: Performed By: #### U MICRO, ERUR, PREGU #### [facility] [address] [address] [address] Arias Delatorre Ketones Ql (U) Negative Normal NEGATIVE [facility] Comment on above: Performed By: #### U MICRO, ERUR, PREGU #### [facility] [address] [address] [address] Arias Delatorre LEUKOCYTES TRACE Abnormal NEGATIVE [facility] Comment on above: Performed By: #### U MICRO, ERUR, PREGU #### [facility] [address] [address] [address] Arias Delatorre Nitrite Ql (U) Negative Normal NEGATIVE [facility] Comment on above: Performed By: #### U MICRO, ERUR, PREGU #### [facility] [address] [address] [address] Arias Delatorre pH (U) 5.0 [pH] Normal 5-9 [facility] Comment on above: Performed By: #### U MICRO, ERUR, PREGU #### [facility] [address] [address] [address] Arias Delatorre SPEC GRAVITY 1.025 Normal 1.005-<=1.0 25 [facility] Comment on above: Performed By: #### U MICRO, ERUR, PREGU #### [facility] [address] [place] [address] Dr. Arias Delatorre UA PROTEIN Negative Normal NEGATIVE/ TRACE [facility] Comment on above: Performed By: #### U MICRO, ERUR, PREGU #### [facility] [address] [place] [address] Dr. Arias Delatorre UR MICRO IND INDICATED Normal [facility] Comment on above: Performed By: #### U MICRO, ERUR, PREGU #### [facility] [address] [place] [address] Dr. Arias Delatorre Urobilinogen Qn (U) 0.2 {Alexandra'U}/dL Normal 0.2 - 1. 0 [facility] Comment on above: Performed By: #### U MICRO, ERUR, PREGU #### [facility] [address] [place] [address] Dr. Arias Delatorre URon 07-24-2021 , QUAL Negative Normal NEGATIVE [facility] Comment on above: Performed By: #### U MICRO, ERUR, PREGU #### [facility] [address] [place] [address] Dr. Arias Delatorre URINE MICROSCOPIC ONLYon BACTERIA SMALL Abnormal NONE SEEN [facility] Comment on above: Performed By: #### U MICRO, ERUR, PREGU #### [facility] [address] [place] [address] Dr. Arias Delatorre Bacteria identified Cx Nom (U) INDICATED Normal [facility] Comment on above: Performed By: #### U MICRO, ERUR, PREGU #### [facility] [address] [place] [address] Dr. Arisa Delatorre CAST NONE SEEN Normal NONE SEEN [facility] Comment on above: Performed By: #### U MICRO, ERUR, PREGU #### [facility] [address] [place] [address] Dr. Arias Delatorre Crystals LM Nom (Urine sed) NONE SEEN Normal NONE SEEN [facility] Comment on above: Performed By: #### U MICRO, ERUR, PREGU #### [facility] [address] [address] [address] Arias Delatorre Epithelial cells LM Ql (Urine sed) MODERATE Abnormal NONE SEEN /RARE [facility] Comment on above: Performed By: #### U MICRO, ERUR, PREGU #### [facility] [address] [address] [address] Arias Delatorre MUCOUS NONE SEEN Normal NONE SEEN [facility] Comment on above: Performed By: #### U MICRO, ERUR, PREGU #### [facility] [address] [address] [address] Arias Delatorre RBC 2-5 Abnormal 0-2 [facility] Comment on above: Performed By: #### U MICRO, ERUR, PREGU #### [facility] [address] [address] [address] Arias Delatorre TRICH SEEN Abnormal NONE SEEN [facility] Comment on above: Performed By: #### U MICRO, ERUR, PREGU #### [facility] [address] [address] [address] Arias Delatorre WBC 2-5 Abnormal NONE SEEN [facility] Comment on above: Performed By: #### U MICRO, ERUR, PREGU #### [facility] [address] [address] [address] Arias Delatorre Vital Signs Date Time Vital Sign Value Performing Clinician Ikei luísy 05-22-2023 00:01-0500 Diastolic blood pressure 53 mm[Hg] PHYSICIAN NO [facility] 05-22-2023 00:01-0500 Heart rate 63 /min PHYSICIAN NO [facility] 05-22-2023 00:01-0500 Respiratory rate 16 /min PHYSICIAN NO [facility] 05-22-2023 00:01-0500 SaO2% (BldA) [Mass fraction] 95 % PHYSICIAN NO [facility] 05-22-2023 00:01-0500 Systolic blood pressure 112 mm[Hg] PHYSICIAN NO [facility] 05-21-2023 17:21-0500 Body height 158.75 cm PHYSICIAN NO [facility] 05-21-2023 17:21-0500 Body temperature 98 [degF] PHYSICIAN NO [facility] 05-21-2023 17:21-0500 Body weight 68.7 kg PHYSICIAN NO [facility] 12-15-2021 07:30-0400 Body temperature 97.3 [degF] MD Francisco J Walker Work Phone: [facility] 12-15-2021 07:30-0400 Diastolic blood pressure 60 mm[Hg] MD Francisco J Walker Work Phone: [facility] 12-15-2021 07:30-0400 Heart rate 88 /min MD Francisco J Walker Work Phone: [facility] 12-15-2021 07:30-0400 Respiratory rate 16 /min MD Francisco J Walker Work Phone: [facility] 12-15-2021 07:30-0400 SaO2% (BldA) [Mass fraction] 99 % MD Francisco J Walker Work Phone: [facility] 12-15-2021 07:30-0400 Systolic blood pressure 120 mm[Hg] MD Francisco J Walker Work Phone: [facility] 12-13-2021 14:01-0400 Body height 157.48 cm MD Francisco J Walker Work Phone: [facility] 12-12-2021 20:50-0400 Body weight 55.79 kg MD Francisco J Walker Work Phone: [facility] Encounters Encounter Date Encounter Type Care Provider Facility Start: 12-25-2023 End: 12-25-2023 ambulatory Crystal Kauffman Facility:[facility] Start: 12-11-2023 End: 12-11-2023 ambulatory ASHLEY WILBURN Facility:[facility] Start: 09-03-2023 End: 09-03-2023 ambulatory Crystal L Daly Facility:[facility] Start: 08-29-2023 End: 08-29-2023 ambulatory Crystal L Daly Facility:[facility] Start: 06-06-2023 End: 06-06-2023 ambulatory Crystal L Daly Facility:[facility] Start: 06-05-2023 ambulatory Crystal Daly Facility:[facility] Start: 05-24-2023 End: 05-24-2023 ambulatory Haja Hauser Facility:[facility] Start: 05-24-2023 End: 05-24-2023 ambulatory PHYSICIAN NO [facility] Work Phone: Start: 05-24-2023 End: 05-24-2023 Patient encounter procedure PHYSICIAN NO [facility] Work Phone: Start: 05-21-2023 End: 05-22-2023 Emergency department patient visit Lucy Hardy Facility:[facility] Start: 05-21-2023 End: 05-22-2023 Emergency department patient visit PHYSICIAN NO [facility] Work Phone: Start: 06-20-2022 ambulatory JR DORITAJOSIANE Facility:[facility] Start: 12-12-2021 End: 12-15-2021 Evaluation and management of inpatient MD Francisco J Walker Work Phone: [facility] Start: 12-12-2021 End: 12-12-2021 ambulatory AUSTIN BROWN Facility:[facility] Start: 07-24-2021 End: 07-24-2021 ambulatory ANEUDY HO Facility:[facility] Procedures Date Procedure Procedure Detail Performing Clinician Start: 05-21-2023 Computed tomography of abdomen and pelvis with contrast PHYSICIAN NO FAMILY Start: 05-21-2023 SARS-CoV-2, Influenz a & RSV (PCR) PHYSICIAN NO FAMILY Plan of Treatment Date Care Activity Detail Author Start: 05-21-2023 Computed tomography of abdomen and pelvis with contrast CT abdomen pelvis w con [facility] Start: 05-21-2023 CT Abdomen and Pelvi s W contrast IV [facility] Start: 12-15-2021 [facility] Work Phone: Start: 12-12-2021 Referral to Relief Master [facility] Work Phone: Start: 12-12-2021 Hospital admission [facility] Work Phone: Patient Education [facility] Work Phone: Patient referral [facility] Work Phone: Payers Date Payer Category Payer Medicaid [id number] 1985 Unknown [id number] 2.16.84 [id number] 1984 Unknown [id number] 2.16.84 [id number] 1984 Unknown [id number] 2.16.84 [id number] 1984 Unknown [id number] 2.16.8 [id number] 1984 Unknown [id number] 2.16.8 [id number] 1984 Unknown [id number] 2.16.8 [id number] 1984 Unknown [id number] 2.16.8 [id number] 1984 Unknown [id number] 2.16.8 [id number] 1960 Medicaid [id number] Self-pay 1959 Unknown [id number] Unknown [id number] 2.16.8 [id number] Unknown [id number] 2.16.8 [id number] Social History Date Type Detail Facility Start: 12-13-2021 Tobacco smoking stat RUSTIS Smoker (finding) [facility] Start: 1985 Sex Assigned At Female F [facility] Start: 05-21-2023 Tobacco smoking stat [facility] Never smoked tobacco (finding) [facility] Functional Status Date Assessment Result Facility 12-15-2021 Functional status Patient at Baseline Fir [facility] Work Phone: Mental Status Date Assessment Result Facility 12-15-2021 Cognitive function Cognitive Sta tus Patient at Baseline [facility] Work Phone: Clinical Note 12-11-2023 Note Date & Type Note Facility 12-11-2023 Note Patient Education Dermatology Folliculitis Folliculitis is inflammation of the hair follicles. Folliculitis most commonly occurs on the scalp, thighs, legs, back, and buttocks. However, it can occur anywhere on the body. What are the causes? This condition may be caused by: ? A bacterial infection (common). ? A fungal infection. ? A viral infection. ? Contact with certain chemicals, especially oils and tars. ? Shaving or waxing. ? [place] ointments or creams applied to the skin. Long-lasting folliculitis and folliculitis that keeps coming back may be caused by bacteria. This bacteria can live anywhere on your skin and is often found in the nostrils. What increases the risk? You are more likely to develop this condition if you have: ? A weakened immune system. ? Diabetes. ? Obesity. What are the signs or symptoms? Symptoms of this condition include: ? Redness. ? Soreness. ? Swelling. ? Itching. ? Small white or yellow, pus-filled, itchy spots (pustules) that appear over a reddened area. If there is an infection that goes deep into the follicle, these may develop into a boil (furuncle). ? A group of closely packed boils (carbuncle). These tend to form in hairy, sweaty areas of the body. How is this diagnosed? This condition is diagnosed with a skin exam. To find what is causing the condition, your health care provider may take a sample of one of the pustules or boils for testing in a lab. How is this treated? This condition may be treated by: ? Applying warm compresses to the affected areas. ? Taking an antibiotic medicine or applying an antibiotic medicine to the skin. ? Applying or bathing with an antiseptic solution. ? Taking an ptro-qki-euzwhbs medicine to help with itching. ? Having a procedure to drain any pustules or boils. This may be done if a pustule or boil contains a lot of pus or fluid. ? Having laser hair removal. This may be done to treat long-lasting folliculitis. Follow these instructions at home: Managing pain and swelling ? If directed, apply heat to the affected area as often as told by your health care provider. Use the heat source that your health care provider recommends, such as a moist heat pack or a heating pad. ? Place a towel between your skin and the heat source. ? Leave the heat on for 20?30 minutes. ? Remove the heat if your skin turns bright red. This is especially important if you are unable to feel pain, heat, or cold. You may have a greater risk of getting burned. General instructions ? If you were prescribed an antibiotic medicine, take it or apply it as told by your health care provider. Do not stop using the antibiotic even if your condition improves. ? Check the irritated area every day for signs of infection. Check for: ? Redness, swelling, or pain. ? Fluid or blood. ? Warmth. ? Pus or a bad smell. ? Do not shave irritated skin. ? Take enta-wwc-btutmww and prescription medicines only as told by your health care provider. ? Keep all follow-up visits as told by your health care provider. This is important. Get help right away if: ? You have more redness, swelling, or pain in the affected area. ? Red streaks are spreading from the affected area. ? You have a fever. Summary ? Folliculitis is inflammation of the hair follicles. Folliculitis most commonly occurs on the scalp, thighs, legs, back, and buttocks. ? This condition may be treated by taking an antibiotic medicine or applying an antibiotic medicine to the skin, and applying or bathing with an antiseptic solution. ? If you were prescribed an antibiotic medicine, take it or apply it as told by your health care provider. Do not stop using the antibiotic even if your condition improves. ? Get help right away if you have new or worsening symptoms. ? Keep all follow-up visits as told by your health care provider. This is important. This information is not intended to replace advice given to you by your health care provider. Make sure you discuss any questions you have with your health care provider. Document Revised: 06/27/2022 Document Reviewed: 02/15/2022 [employer] Patient Education ? 2022 [employer]. [facility] Discharge summary 12-15-2021 Note Date & Type Note Facility 12-15-2021 Discharge summary Note Date/Time December 15, 2021 11:34am [facility] [address] [place] [address] Discharge Summary Signed Patient: Deisy Portillo MR#: [id number] : 1985 Acct:[id number] Age/Sex: 36 / F Adm Date: 2 Loc: Room: [address] [place] [address]: Francisco J Walker MD Copies [...] Hospital course: According to admission note: Ms. Portillo is a 36 year old female with [...] consistent with underlying context of PTSD.? Ms Portillo' substance use consisted of nearly daily THC use until the onset of hallucinations. She reports correction opiate addition, sobriety for 6.5 years. History [...] Instructions: Depression, Adult (DC), Acute Psychosis (DC), [facility] Behavioral Health DC Instructions Prescriptions: New trazodone [...] 30 Days Qty: 30 0RF Follow Up: [facility] Hotline [Outside] [facility] [Outside] - 12/18/21 8:00 am ( area sales manager: Saturday12/18/21 between 8am-12pm, a employment case manager will call you for an over the [...] signed by Francisco J Walker MD> 12/15/21 9501 [facility] Work Phone: Progress note 12-14-2021 Note Date & Type Note Facility 12-14-2021 Progress note Note Date/Time December 14, 2021 12:10pm [facility] [address] [place] [address] Psychiatry Progress Note Signed Patient: Deisy Portillo MR#: [id number] : 1985 Acct:[id number] Age/Sex: 36 / F Adm Date: 2 Loc: Room: 4I3612-2 Type : ADM IN Attending Dr: Francisco J Walker MD Copies to: ~ Date of Service: 12/14/2021 Subjective Subjective Narrative: Ms Portillo reports she is feeling better today. She [...] 07:30 Assessment/Plan Assessment/Plan (1) Psychosis: Plan: Ms Portillo presents with psychotic symptoms (hallucinations) with a [...] by Francisco J Walker MD> 12/14/21 1210 [facility] Work Phone: History and physical note 12-13-2021 Note Date & Type Note Facility 12-13-2021 History and physi benjamin note Note Date/Time December 13, 2021 2:30pm [facility] [address] [place] [address] Psychiatry H&P Signed Patient: Deisy Portillo MR#: [id number] : 1985 Acct:[id number] Age/Sex: 36 / F Adm Date: 2 Loc: 1S Room: [address] [place] [address] Type: ADM IN Attending Dr: Francisco J Walker MD Copies to: Francisco J Walker MD NO FAMILY PHYSICIAN~ Date of Service: 12/13/2021 HPI History of Present Illness History of present illness: Ms. Portillo is a 36 year old female with [...] consistent with underlying context of PTSD. Ms Portillo' substance use consisted of nearly daily THC use until the onset of hallucinations. She reports termite helper opiate addition, sobriety for 6.5 years. History [...] the past she took Lexapro for depression. [facility] Attestation Statement: The following information was validated with the patient. Vaccinated for COVID-19?: No Medical History (Updated 12/13/21 @ 14:03 by rBuce Prieto) Major depressive disorder Post traumatic stress disorder (PTSD) Substance use disorder Surgical History (Updated 12/12/21 @ 21:19 by Christine Zambrano RN) H/O tubal ligation History of x3 [...] Assessment/Plan (1) Major depressive disorder: Plan: Ms Portillo presents with psychotic symptoms (hallucinations) with a [...] signed by Francisco J Walker MD> 12/13/21 1390 [facility] Work Phone: Evaluation note Note Date & Type Note Facility Evaluation note Diagnosis Onset Date Anxiety acute Major depressive disorder [place] Post traumatic stress disorder (PTSD) acute Psychosis acute Substance use disorder acute Suicidal ideation acute [facility] Work Phone: Evaluation note Note Date & Type Note Facility Evaluation note No assessment information availa ble [facility] Work Phone: Hospital Discharge instructions Note Date & Type Note Facility Hospital Discharge instructions Additional Instructions Regular diet. No activity restrictions. [facility] Work Phone: Chief Complaint and Reason for Visit Chief Complaint MDD Reason for Visit Anxiety Major depressive disorder Post traumatic stress disorder (PTSD) Psychosis Substance use disorder Suicidal ideation Chief Complaint n/v Chief Complaint n/v nausea vomiting Family History No Family History Records Found Relationship Condition Age at Onset Recorded Date/T rowena brother Malignant neoplasm Unknown Not Specified Malignant neoplasm Unknown father Hepatic cirrhosis Unknown Alcoholism Unknown grandparent Family history of mental disorder Unknown Advance Directives No Advanced Directives Records Found Advance Directive Response Recorded Date/ Time Advance Directives No December 12 5:52pm Advance Directive Response Recorded Date/ Time Advance Directives No December 12 4:52pm Summary Purpose Additional Source Comments Care Teams (unrecognized sec tion and content) Team Status: Inactive Member Role Status Dates Francisco J Walker MD Admit Provider, Attending Provider Active PHYSICIAN NO FAMILY Primary Care Provider Active Team Status: Active Member Role Status Dates PHYSICIAN NO FAMILY Primary Care Provider Active Team Status: Inactive Member Role Status Dates PHYSICIAN NO FAMILY Primary Care Provider Active Lucy Hardy DO Emergency Provider Active Team Status: Inactive Member Role Status Dates PHYSICIAN NO FAMILY Primary Care Provider Active Start: May 21, 2023 End: May 22, 2023 Lucy Hardy DO Emergency Provider Active Sta rt: May 21, 2023 End: May 22, 2023 Team Status: Inactive Member Role Status Dates PHYSICIAN NO FAMILY Primary Care Provider Active Start: May 24, 2023 End: May 24, 2023 Haja Hauser DO Attending Provider Active Start: May 24, 2023 End: May 24, 2023 Goals (unrecognized section and content) Goals may be documented in a n alternate sectionGoals may be documented in an alternate sectionGoals may be documented in an alternate section INFORMATION SOURCE (unrecogn ized section and content) DATE CREATED AUTHOR 06/20/2022 [facility] DATE CREATED AUTHOR AUTHOR'S ORGANIZ ATION 06/01/2023 [facility] DATE CREATED AUTHOR AUTHOR'S ORGANIZ ATION 12/27/2023 [facility] FOR RECORDS PERTAINING TO PATIENTS WHO ARE [...] BE BASED ON THE PRIMARY CLINICAL RECORDS. [facility] [employer] [facility]. provides no warranty or guarantee of the accuracy or completeness of information in this document.
[2024-02-23 10:51] LABS: Influenza Virus A Antigen Negative; Influenza Virus B Antigen Negative; Internal Control Within Normal Limits; SARS-CoV-2 Ag NEGATIVE (NEGATIVE)
[2024-02-23] MEDS: DIPHENHYDRAMINE HCL 50 MG/ML VIAL 25 MG IM (10:55)
[2024-02-23] MEDS: TRIAMCINOLONE ACETONIDE 40 MG/ML VIAL IM (10:55)
--- NOTE | 2024-02-23 11:05 | ED.URI1 ---
HPI - URI/Sore Throat General Chief Complaint: Upper Respiratory Infection Stated Complaint: COLD AND FLU LIKE SYMPTHOMS Time Seen by Provider: 02/23/24 10:16 Source: patient History of Present Illness HPI Narrative: 39-year-old female to the emergency department with chief complaint of nasal congestion, cough, malaise. Patient reports symptoms started 3 days ago. There is COVID going around at work and she is requesting a test. Patient reports that to try and get herself to feel better she dyed her hair 2 days ago. She developed a rash on her neck and forehead after using the hair dye. She was requesting a shot of Benadryl and steroids Related Data Previous Rx's ?Medication ?Instructions ?Recorded hambapcghcjiwpu-tnhbxpmavdgccbj-MF 5 ml PO Q4H PRN cold symptoms #118 02/23/24 2 mg-30 mg-10 mg/5 mL oral syrup mL (Bromfed DM) Allergies Allergy/AdvReac Type Severity Reaction Status Date / Time No Known Drug Allergies Allergy Verified 05/15/23 11:42 Review of Systems ROS Status of ROS 10 or more systems reviewed and unremarkable except as noted in history and below [facility] Social History Smoking status: Current every day smoker Exam Narrative Exam Narrative: VITALS: I have reviewed the triage vital signs. GENERAL: Well developed, well appearing adult in no acute distress. NEURO: Alert and oriented. Moves all extremities. Face is symmetric and expressive. EYES: PERRL. No scleral icterus or conjunctival injection. No discharge. HENT: Normocephalic, atraumatic. Hearing is grossly intact. Nasal passages congested bilaterally mucous membranes moist. TMs clear bilaterally. Uvula midline, no unilateral peritonsillar swelling. NECK: No JVD. Patient moves neck without restriction. CARDIO: Rhythm regular. Normal rate. No murmur, rub, or gallop. Pulses equal bilaterally in the upper and lower extremity. No lower extremity edema. PULM: Lungs clear to auscultation in all [place]. No wheezes, rales, or rhonchi. No conversational dyspnea. No splinting, stridor, or accessory muscle use. EXTREMITIES: Symmetric muscle bulk. No joint swelling. No clubbing, cyanosis, or deformity. SKIN: Warm and dry. Normal turgor. No rash or lesions appreciated. PSYCH: Mood, affect, and interaction is appropriate to the setting. Constitutional Vital Signs, click to edit/add: Last Vital Signs Temp 99.3 F 02/23/24 10:16 Pulse 83 02/23/24 10:16 Resp 18 02/23/24 10:16 BP 122/65 02/23/24 10:16 Pulse Ox 97 02/23/24 10:16 Course Vital Signs Vital signs: Vital Signs Temperature 99.3 F 02/23/24 10:16 Pulse Rate 83 02/23/24 10:16 Respiratory Rate 18 02/23/24 10:16 Blood Pressure 122/65 02/23/24 10:16 Pulse Oximetry 97 02/23/24 10:16 Temperature 99.3 F 02/23/24 10:16 Pulse Rate 83 02/23/24 10:16 Respiratory Rate 18 02/23/24 10:16 Blood Pressure 122/65 02/23/24 10:16 Pulse Oximetry 97 02/23/24 10:16 MDM - URI/Sore Throat MDM Narrative Medical decision making narrative: 39-year-old female to the emergency department with chief complaint of upper respiratory infection as well as allergic reaction to hair dye. Vital stable, the patient is afebrile. No respiratory distress. History and exam are consistent with viral upper respiratory infection. COVID and flu testing are negative. Bromfed for the symptoms prescribed. She also has a mild contact dermatitis around her neck and forehead from her hair dye presumably given the recent exposure. Kenalog and Benadryl given. Patient agrees with this plan. The patient was discharged home. Medical Records Attestation: I reviewed the patient's medical records. Lab Data Attestation: I reviewed the patient's lab results. Labs: Lab Results 02/23/24 Range/Units 10:30 Influenza Type A Ag Negative Influenza Type B Ag Negative SARS-CoV-2 Ag (CV2AG) Negative (NEGATIVE) Discharge Plan Discharge Chief Complaint: Upper Respiratory Infection Clinical Impression: Upper respiratory infection, Contact dermatitis Patient Disposition: Home, Self-Care Time of Disposition Decision: 11:01 Condition: Good Mode of Transportation: Private Vehicle Prescriptions / Home Meds: New cthemrzkjbtfpgh-erdhkehkg-GJ [Bromfed DM] 2-30-10 mg/5 mL syrup 5 ml PO Q4H PRN (Reason: cold symptoms) Qty: 118 0RF Print Language: Serbian Instructions: Upper Respiratory Infection (ED) Additional Instructions: Call the office of your primary care doctor to arrange for follow-up within the above-stated timeframe. Your ED visit was focused on your acute issue and does not replace primary care. You should review your labs, imaging, and diagnoses from this ED visit with your primary care physician. There may be non-emergent/ incidental findings that need further evaluation. You should review your vital signs including blood pressure with your PCP. If you were prescribed medications you should discuss possible side-effects and drug interactions with your pharmacist. Call 911 or go to the nearest Emergency Department if you develop any new or worsening symptoms. Referrals: Physician,Non-Staff, MD [Primary Care Provider] - 1 week
== END 2024-02-23 11:11 | disposition home or self-care (01) ==
PROVIDERS: Emergency Provider Student in an Organized Health Care Education/Training Program
DX: J06.9 Acute upper respiratory infection, unspecified (principal); L25.9 Unspecified contact dermatitis, unspecified cause; Z20.822 Contact with and (suspected) exposure to COVID-19; F17.200 Nicotine dependence, unspecified, uncomplicated
CPT/HCPCS: 87804; 87811; 96372; 99284; J1200; J3301